=== PATIENT | female | born 1940 | race Caucasian/White ===

== ENCOUNTER 2016-09-08 10:54 | Emergency (ER) | payer MEDICARE ==
[2016-09-08] MEDS ORDERED: Acetaminophen-Codeine 300-30mg TAB PO STA (12:27)
--- NOTE | 2016-09-08 12:30 | ED ---
Extremity Problem HPI - General Chief complaint: Extremity Problem,Nontraumatic Stated complaint: Rt Leg/Groin Pain Time Seen by Provider: 09/08/16 11:45 Source: patient, RN notes reviewed Mode of arrival: wheelchair Limitations: no limitations - History of Present Illness Initial comments: Patient is a 76-year-old female presents emergency room for evaluation of right leg pain. Patient states the pain is been going on for the past few weeks. Patient states the pain has been getting worse over the past 2 days. Patient states the pain starts on the lateral portion of her ankle and radiates up into her leg to the medial portion of her thigh. Patient states that she went to her primary care provider this morning they were told to come here to rule out blood clot. Patient denies history of DVTs or PEs. Patient denies being on any blood thinners. Patient states she only takes blood pressure and cholesterol medication. Patient states she took Advil and a muscle relaxer this morning with little relief of symptoms. Patient denies numbness or tingling in toes. Patient denies calf pain. Patient also states that she's having pain in her right buttocks that does appear to radiate down her leg. Patient is not sure if this pain is sciatic versus a blood clot. Patient denies any back pain. Patient denies urine or fecal incontinence. Patient denies saddle anesthesia - Related Data Home Medications Medication Instructions Recorded Confirmed ALPRAZolam [Xanax] 0.5 mg PO HS PRN 09/08/16 09/08/16 Lisinopril [Prinivil] 10 mg PO DAILY 09/08/16 09/08/16 Pravastatin Sodium [Pravachol] 40 mg PO DAILY 09/08/16 09/08/16 amLODIPine [Norvasc] 5 mg PO DAILY 09/08/16 09/08/16 buPROPion HCL [Wellbutrin XL] 150 mg PO DAILY 09/08/16 09/08/16 Previous Rx's Medication Instructions Recorded Acetaminophen with Codeine 1 tab PO Q4H PRN #15 tab 09/08/16 [Tylenol w/codeine #3] Allergies Allergy/AdvReac Type Severity Reaction Status Date / Time No Known Allergies Allergy Verified 09/08/16 13:53 Review of Systems ROS Statement: Those systems with pertinent positive or pertinent negative responses have been documented in the HPI. ROS Other: All systems not noted in ROS Statement are negative. Past Medical History Past Medical History: Hyperlipidemia, Hypertension Additional Past Medical History / Comment(s): varicose veins History of Any Multi-Drug Resistant Organisms: None Reported Past Surgical History: No Surgical Hx Reported Past Psychological History: Depression Smoking Status: Never smoker Past Alcohol Use History: Occasional Past Drug Use History: None Reported General Exam - General Exam Comments Initial Comments: Sitting in exam room, no acute distress. Limitations: no limitations General appearance: alert, in no apparent distress Head exam: Present: atraumatic, normocephalic, normal inspection Eye exam: Present: normal appearance ENT exam: Present: normal exam Neck exam: Present: normal inspection Respiratory exam: Present: normal lung sounds bilaterally. Absent: respiratory distress Cardiovascular Exam: Present: regular rate, normal rhythm, normal heart sounds Right Hip exam: Present: normal inspection, tenderness (Palpating over right sciatic notch) Knee exam: Present: full knee extension Lower Leg exam: Absent: Homans' sign Foot/Toe exam: Present: tenderness (Lateral portion of the ankle) Neurovascular tendon exam: Present: no vascular compromise. Absent: pulse deficit (2+ dorsal pedal and posterior tibial pulses), abnormal cap refill ( Capillary refill less than 2 seconds) Back exam: Present: normal inspection Neurological exam: Present: alert, oriented X3, CN II-XII intact Psychiatric exam: Present: normal affect, normal mood Skin exam: Present: warm, dry, intact, normal color. Absent: rash Course Vital Signs 09/08/16 09/08/16 11:16 14:00 Temperature 97.5 F L 97.2 F L Pulse Rate 60 93 Respiratory 20 18 Rate Blood Pressure 170/102 143/93 O2 Sat by Pulse 100 94 L Oximetry Medical Decision Making - Medical Decision Making Patient is a 76-year-old female presents emergency room for evaluation of right leg pain. Venous Doppler ultrasound negative for DVT. X-ray of lumbosacral spine negative for any acute findings. It does appear that patient is having more of a sciatic type pain or radicular type pain from low back. Patient was given Tylenol 3 while she was here. Patient states she had significant improvement of symptoms after taking it. Will send patient home with pain medications and advised her to follow up with primary care provider for possible MRI if symptoms do persist. Patient states she understands everything that was discussed with her. Return parameters discussed. Case discussed with Dr. Massey. - Radiology Data Radiology results: report reviewed, image reviewed Disposition Clinical Impression: Radicular pain of right lower extremity Disposition: HOME SELF-CARE Condition: Good Instructions: Lumbar Radiculopathy (ED) Additional Instructions: Warm compresses. Take Tylenol 3 as needed for severe pain. Please follow up with primary care provider in 1-2 days. If any new symptom arises or symptoms worsen, return to ER as soon as possible. Prescriptions: Acetaminophen with Codeine [Tylenol w/codeine #3] 1 tab PO Q4H PRN #15 tab PRN Reason: Pain Referrals: Chance Ugalde MD [Primary Care Provider] - 1-2 days Time of Disposition: 14:37
--- NOTE | 2016-09-08 13:49 | US ---
EXAMINATION TYPE: US venous doppler duplex LE RT DATE OF EXAM: 09/08/2016 1:30 PM COMPARISON: NONE CLINICAL HISTORY: Pain. Right leg pain. No hx of DVT or on blood thinners. No hx of surgeries. SIDE PERFORMED: Right TECHNIQUE: The lower extremity deep venous system is examined utilizing real time linear array sonog danette with graded compression, doppler sonography and color-flow sonography. VESSELS IMAGED: External Iliac Vein (EIV) Common Femoral Vein Deep Femoral Vein Greater Saphenous Vein * Femoral Vein Popliteal Vein Small Saphenous Vein * Proximal Calf Veins (* superficial vessels) Grayscale, color doppler, spectral doppler imaging performed of the deep veins of the lower extremiti es. There is normal flow, compressibility, vascular waveforms bilaterally. Right Leg: Appears negative for DVT IMPRESSION: No evidence for DVT at this time.
[2016-09-08 14:23] VITALS: BP 143/93; PULSE 93; RESP 18; TEMP 97.2
--- NOTE | 2016-09-08 14:31 | XR ---
EXAMINATION TYPE: XR lumbosacral spine min 4V DATE OF EXAM: 09/08/2016 2:24 PM COMPARISON: NONE HISTORY: Pain TECHNIQUE: 5 views FINDINGS: Vertebra have fairly normal alignment. There is a slight dextro scoliosis. Posterior elements are int act. Sacroiliac joints are normal. Abdominal aorta is atheromatous. There is no compression fracture. IMPRESSION: Minor degenerative spur formation. No fracture.
== END 2016-09-08 14:45 | disposition home or self-care (01) ==
LOC: EC 10:54
DX: M54.10 Radiculopathy, site unspecified (principal); E78.5 Hyperlipidemia, unspecified; I10 Essential (primary) hypertension; F32.9 Major depressive disorder, single episode, unspecified; Z79.899 Other long term (current) drug therapy
CPT/HCPCS: 72110; 99284

== ENCOUNTER → 2018-08-18 | Outpatient (CLI) | payer MEDICARE ==
--- NOTE | 2018-08-19 11:27 | ECHOF ---
Referral Reason:R01.1 cardiac murmur MEASUREMENTS -------- HEIGHT: 162.6 cm WEIGHT: 70.3 kg BP: 161/72 RVIDd: 2.7 cm (< 3.3) IVSd: 1.2 cm (0.6 - 1.1) LVIDd: 3.8 cm (3.9 - 5.3) LVPWd: 1.4 cm (0.6 - 1.1) IVSs: 1.8 cm LVIDs: 2.5 cm LVPWs: 1.6 cm LA Diam: 3.0 cm (2.7 - 3.8) LAESV Index (A-L): 20.94 ml/m Ao Diam: 2.6 cm (2.0 - 3.7) AV Cusp: 1.1 cm (1.5 - 2.6) EPSS: 0.5 cm MV E Tyrell: 0.71 m/s MV DecT: 354 ms MV A Tyrell: 1.14 m/s MV E/A Ratio: 0.62 AV maxP.35 mmHg AV meanP.73 mmHg RAP: 5.00 mmHg RVSP: 19.68 mmHg MV EF SLOPE: 46.43 mm/s (70 - 150) MV EXCURSION: 1.51 cm (> 18.000) FINDINGS -------- Sinus rhythm. This was a technically adequate study. The left ventricular size is normal. There is moderate concentric left ventricular hypertrophy. O verall left ventricular systolic function is normal with, an EF between 55 - 60 %. The right ventricle is normal in size. Normal LA size by volume 22+/-6 ml/m2. The right atrium is normal in size. There is moderate aortic valve sclerosis. Trace to mild aortic regurgitation. There is moderate a ortic stenosis present. Peak/mean gradient across the Aortic Valve is 37.35mmHg / 20.73mmHg. The mitral valve leaflets are mildly thickened. Mild mitral annular calcification present. Mild tricuspid regurgitation present. Right ventricular systolic pressure is normal at < 35 mmHg. Trace/mild (physiologic) pulmonic regurgitation. The aortic root size is normal. Normal inferior vena cava with normal inspiratory collapse consistent with estimated right atrial pre ssure of 5 mmHg. There is no pericardial effusion. CONCLUSIONS -------- 1. Sinus rhythm. 2. This was a technically adequate study. 3. The left ventricular size is normal. 4. There is moderate concentric left ventricular hypertrophy. 5. Overall left ventricular systolic function is normal with, an EF between 55 - 60 %. 6. The right ventricle is normal in size. 7. Normal LA size by volume 22+/-6 ml/m2. 8. The right atrium is normal in size. 9. There is moderate aortic valve sclerosis. 10. Trace to mild aortic regurgitation. 11. There is moderate aortic stenosis present. 12. Peak/mean gradient across the Aortic Valve is 37.35mmHg / 20.73mmHg. 13. The mitral valve leaflets are mildly thickened. 14. Mild mitral annular calcification present. 15. Mild tricuspid regurgitation present. 16. Right ventricular systolic pressure is normal at < 35 mmHg. 17. Trace/mild (physiologic) pulmonic regurgitation. 18. The aortic root size is normal. 19. Normal inferior vena cava with normal inspiratory collapse consistent with estimated right atrial pressure of 5 mmHg. 20. There is no pericardial effusion. FINGERER: NEERU Ahuja
== END | disposition home or self-care (01) ==
LOC: RADECHMAIN 14:41
PROVIDERS: ATTEND Internal Medicine
DX: I08.3 Combined rheumatic disorders of mitral, aortic and tricuspid valves (principal)
CPT/HCPCS: 93306

== ENCOUNTER → 2019-04-27 | Outpatient (CLI) | payer MEDICARE ==
--- NOTE | 2019-04-27 12:00 | ECHOS ---
STRESS ECHOCARDIOGRAM DATE OF SERVICE: 04/27/2019 INDICATIONS: Dyspnea. MEDICATIONS: Simvastatin, lisinopril. BASELINE HEART RATE: 63 BASELINE BLOOD PRESSURE: 152/66 MAXIMUM HEART RATE: 133 MAXIMUM BLOOD PRESSURE: 174/93 85% MPHR: 120 100% MPHR: 141 METS: 5.2 MAXIMUM STAGE REACHED: II TOTAL EXERCISE TIME: 3 minutes 40 seconds CLINICAL INFORMATION: Patient was exercised for a total period of 3 minutes and 40 seconds. A peak heart rate of 133 was achieved. Maximum blood pressure of 174/93 mmHg was noted. Test was terminated because patient got short of breath. Resting EKG shows normal sinus rhythm with normal SC interval and QRS duration and minimal ST changes. During exercise, [address]-segment depression is noted in the inferior lateral leads. The baseline echocardiographic images reveals normal left ventricular chamber size with normal left ventricular systolic function. In the immediate postexercise period, normal increase in the wall thickness and contractility is noted. FINAL IMPRESSION: 1. This stress echocardiographic study is negative for stress-induced ischemia. 2. EKG shows ST-segment depression which could be suggestive of ischemia versus changes secondary to hypertension. Patient's only symptoms were shortness of breath. 3. The patient's exercise tolerance is below average. MMODL / IJN: [id number] /
== END | disposition home or self-care (01) ==
LOC: RADNMMAIN 09:22
PROVIDERS: ATTEND Physician Assistant
DX: R06.09 Other forms of dyspnea (principal)
CPT/HCPCS: 93351

== ENCOUNTER → 2019-06-16 | Outpatient (CLI) | payer MEDICARE ==
--- NOTE | 2019-06-17 12:12 | MM ---
Reason for exam: screening (asymptomatic). Last mammogram was performed 3 years and 2 months ago. History: Patient is postmenopausal. Family history of breast cancer in daughter. Physical Findings: A clinical breast exam by your physician is recommended on an annual basis and results should be correlated with mammographic findings. MG 3D Screening Mammo W/Cad Bilateral CC and MLO view(s) were taken. Prior study comparison: April 04, 2016, bilateral MG screening mammo w CAD. September 17, 2005, bilateral screening mammogram w/CAD. The breast tissue is heterogeneously dense. This may lower the sensitivity of mammography. Benign appearing bilateral vascular calcifications. No suspicious abnormality. Stable right medial anterior depth asymmetry. No significant changes when compared with prior studies. ASSESSMENT: Benign, BI-RAD 2 RECOMMENDATION: Routine screening mammogram of both breasts in 1 year.
== END | disposition home or self-care (01) ==
LOC: RADMAMWWP 10:45
PROVIDERS: ATTEND Internal Medicine
DX: Z12.31 Encounter for screening mammogram for malignant neoplasm of breast (principal)
CPT/HCPCS: 77063; 77067

== ENCOUNTER → 2022-04-18 | Outpatient (CLI) | payer MEDICARE ==
--- NOTE | 2022-04-18 13:49 | US ---
EXAMINATION TYPE: US kidneys/renal and bladder DATE OF EXAM: 04/18/2022 COMPARISON: NONE CLINICAL HISTORY: N39.0 URINARY TRACT INFECTION, SITE NOT SPECIFIED. UTI EXAM MEASUREMENTS: Right Kidney: 9.8 x 3.9 x 4.5 cm Left Kidney: 10.9 x 5.1 x 4.4 cm Right Kidney: Appeared wnl Left Kidney: Appeared wnl Bladder: anterior bladder wall appears as though there is a focal outpouching possibly relating to bl adder diverticulum versus incomplete distention and wall folding. Bilateral Jets seen: Yes There is no evidence for hydronephrosis at this point in time. No nephrolithiasis is seen. No joe s are identified. The urinary bladder is anechoic. Bilateral ureteral jets are seen. IMPRESSION: 1. No evidence of obstructive uropathy. No acute process. 2. Bladder diverticulum versus incomplete distention and bladder wall folding noted. This could be c onfirmed with CT urogram.
== END | disposition home or self-care (01) ==
LOC: RADUSWWP 12:01
PROVIDERS: ATTEND Urology
DX: N39.0 Urinary tract infection, site not specified (principal)
CPT/HCPCS: 76770

== ENCOUNTER 2023-05-01 11:54 | Inpatient (IN) | payer MEDICARE ==
[2023-05-01] MEDS ORDERED: FUROSEMIDE 10 MG/ML 4 ML VIAL ONE (13:32)
[2023-05-01] MEDS ORDERED: IPRATROPIUM-ALBUTEROL 3 ML NEB INHALATION PRN (13:41)
[2023-05-01] MEDS ORDERED: FUROSEMIDE 10 MG/ML 4 ML VIAL IV STA (13:42)
[2023-05-01] MEDS ORDERED: NITROGLYCERIN SL TABS 0.4 MG TAB SUBLINGUAL PRN (13:42)
[2023-05-01] MEDS ORDERED: NITROGLYCERIN-D5W PMX 50 MG in DEXTROSE/WATER 1 250ML.BAG IV SCH (13:45)
[2023-05-01] MEDS ORDERED: HEPARIN SODIUM 1,000 UN/ML (10ML VL) ONE (14:53)
[2023-05-01] MEDS ORDERED: fentaNYL (PF) 50 MCG/ML 2 ML AMP ONE (14:53)
[2023-05-01] MEDS ORDERED: IV FLUID CONTINUATION 1,000 ML IV ONE (15:02)
[2023-05-01] MEDS ORDERED: LIDOCAINE 1% INJ 10MG/ML (20 ML MDV) SQ ONE (15:09)
[2023-05-01] MEDS ORDERED: MIDAZOLAM 2 MG/2 ML VIAL IVP ONE ×2 (15:10→15:11)
[2023-05-01] MEDS ORDERED: VERAPAMIL SYRINGE (5 MG/10 ML) INTRAARTER ONE (15:10)
[2023-05-01] MEDS: HEPARIN SODIUM 1,000 UN/ML (10ML VL) IVP ONE ×2 (15:12→15:22)
[2023-05-01] MEDS ORDERED: HEPARIN SODIUM 1,000 UN/ML (10ML VL) IVP ONE (15:12)
[2023-05-01] MEDS ORDERED: NITROGLYCERIN 1000MCG/10ML SYRINGE INTRACORON ONE (15:22)
[2023-05-01] MEDS ORDERED: IOPAMIDOL-370 100ML BTL INJ ONE ×2 (15:23→15:41)
[2023-05-01] MEDS ORDERED: PHENYLEPHRINE-0.9% NACL SYG 1,000 MCG/10 ML SYRINGE IVP ONE (15:31)
--- NOTE | 2023-05-01 15:48 | P.PRCINT ---
Percutaneous Coronary Int. - Percutaneous Coronary Intervention Percutaneous Coronary Intervention: PROCEDURES PERFORMED: Left coronary angiography, PCI circumflex with a 2.5 x 15mm Xience DAVID, post dilated with a 3.0 NC balloon INDICATION: Non-STEMI CONSENT:I have discussed the risks, benefits and alternative therapies for the above-mentioned procedure and for both sedation/analgesia as well as necessary blood product administration, if indicated, as they pertain to this patient. The patient has indicated understanding and acceptance of the risks and procedures discussed. PROCEDURE: After the risks, benefits and alternatives of the above mentioned procedure explained in detail with the patient, informed consent was obtained. Patient was taken to the catheterization lab and prepped and draped in usual fashion. UA 6-Kyrgyz sheath had been placed in the right radial artery previously. The decision was made to perform PCI of the circumflex. Heparin was given. A 6-Kyrgyz CLS 3.5 guide was used engage the left main. A 0.014 BMW wire was advanced in the distal circumflex. A 2.5 x 8 mm balloon was used to predilate the lesion. Intravascular ultrasound was performed which showed reference vessel distally approximately 2.5 mm more proximally 3.0 mm. A 2.5 x 15 mm Xience DAVID was placed in the mid circumflex. The proximal portion of the stent was postdilated with a 3.0 noncompliant balloon. Repeat intravascular ultrasound was performed which showed well-expanded stent with no dissection. Final angiograms were performed. Pre-intervention there was 95% stenosis with SHAKEEL 3 flow and postintervention there was less than 10% stenosis with SHAKEEL 3 flow. The right radial sheath was removed and a TR band was placed with hemostasis achieved. The patient tolerated the procedure well. Patient was transported back to the post catheterization holding area in stable condition. Conscious Sedation: Patient was monitored under the direct supervision of myself for conscious sedation using Versed and fentanyl for a total duration of 33 minutes HEMODYNAMICS: Aortic: 110/72 SELECTIVE CORONARY ARTERIOGRAPHY: LEFT MAIN: The left main is a large caliber vessel which bifurcates into the LAD and circumflex. There is mild 20-30% diffuse left main stenosis. LEFT ANTERIOR DESCENDING CORONARY ARTERY: LAD is a large caliber vessel which wraps around to the apex. There is a mid LAD 40% stenosis and otherwise mild luminal irregularities. LEFT CIRCUMFLEX CORONARY ARTERY: Left circumflex is a moderate caliber vessel with a mid circumflex 95% stenosis and otherwise mild luminal irregularities. RIGHT CORONARY ARTERY: The right coronary artery was not imaged, see separate report. FINAL IMPRESSION: 1. CAD as described above including mid LAD 40% stenosis and mid circumflex 95% stenosis 2. S/p PCI circumflex with a 2.5 x 15mm Xience DAVID, post dilated with a 3.0 NC balloon PLAN: 1. Aggressive risk factor modification per most recent ACC/AHA guidelines. 2. Continue dual antiplatelets with aspirin and Brillinta for 12 months.
[2023-05-01] MEDS: IPRATROPIUM-ALBUTEROL 3 ML NEB INHALATION SCH ×2 (16:09→20:53)
[2023-05-01] MEDS: METOPROLOL TARTRATE 25 MG TAB PO SCH ×2 (16:25→22:54)
[2023-05-01] MEDS ORDERED: RX INFO: IV CONTRAST WAS GIVEN 1 EACH MISC MISCELLANE PRN (16:27)
[2023-05-01] MEDS ORDERED: ZOLPIDEM 5 MG TAB PO PRN (16:27)
[2023-05-01] MEDS ORDERED: MAG HYDROX/AL HYDROX/SIMETH 30 ML CUP PO PRN (16:27)
[2023-05-01] MEDS ORDERED: ATROPINE SULFATE 0.1 MG/ML 10ML SYRINGE IV PRN (16:27)
[2023-05-01] MEDS ORDERED: SODIUM CHLORIDE 0.9% 1,000 ML in EMPTY BAG 1 BAG IV SCH (16:30)
[2023-05-01] MEDS: TICAGRELOR 90 MG TAB PO SCH (20:33)
[2023-05-01] MEDS: FUROSEMIDE 10 MG/ML 4 ML VIAL IV SCH (20:34)
[2023-05-01] MEDS ORDERED: ATORVASTATIN 40 MG TAB PO SCH (21:00)
[2023-05-02] MEDS ORDERED: MELATONIN 3 MG TABLET PO ONE (00:10)
[2023-05-02 07:44] LABS: Basophils % (A) 0 %; Eosinophils # (A) 0.1 k/uL (0-0.7); Eosinophils % (A) 1 %; HCT 42.4 % (34.0-46.0); HGB 14.1 gm/dL (11.4-16.0); Lymphocytes # (A) 1.4 k/uL (1.0-4.8); Lymphocytes % (A) 14 %; MCH 32.2 pg (25.0-35.0); MCHC 33.1 g/dL (31.0-37.0); MCV 97.1 fL (80.0-100.0); Mean Platelet Volume 7.5; Monocytes # (A) 0.7 k/uL (0-1.0); Monocytes % (A) 7 %; Neutrophils # (A) 7.9 k/uL (1.3-7.7); Neutrophils % (A) 77 %; Platelet Count 294 k/uL (150-450); RBC 4.37 m/uL (3.80-5.40); RDW 12.9 % (11.5-15.5); WBC 10.3 k/uL (3.8-10.6)
[2023-05-02 08:08] LABS: African American GFR (CKD) 79 (>60 ml/min/1.73 sqM); Anion Gap 12 mmol/L; Blood Urea Nitrogen 30 mg/dL (7-17); Calcium 9.4 mg/dL (8.4-10.2); Carbon Dioxide 25 mmol/L (22-30); Chloride 102 mmol/L (98-107); Glucose 134 mg/dL (74-99); Non-African American GFR(CKD) 69 (>60 ml/min/1.73 sqM); Potassium 3.6 mmol/L (3.5-5.1); Sodium 139 mmol/L (137-145)
[2023-05-02] MEDS: IPRATROPIUM-ALBUTEROL 3 ML NEB INHALATION SCH ×2 (08:12→12:06)
[2023-05-02 08:20] VITALS: RESP 16
[2023-05-02] MEDS: METOPROLOL TARTRATE 25 MG TAB PO SCH (08:44)
[2023-05-02] MEDS: TICAGRELOR 90 MG TAB PO SCH (08:44)
[2023-05-02] MEDS: FUROSEMIDE 10 MG/ML 4 ML VIAL IV SCH (08:44)
[2023-05-02] MEDS ORDERED: LOSARTAN 25 MG TAB PO SCH (09:00)
[2023-05-02] MEDS ORDERED: ASPIRIN 81 MG PO SCH (09:00)
[2023-05-02 11:19] VITALS: BMI 16.5
--- NOTE | 2023-05-02 11:46 | P.PN ---
Subjective HISTORY OF PRESENT ILLNESS: This is an 82-year-old female who underwent cardiac catheterization with Dr. Billings with stenting to the circumflex. Patient examined this morning at the bedside. Patient denies any further episodes of chest pain or pressure. She currently denies shortness of breath. Vital signs are stable. Right radial cath site with pulse present. PHYSICAL EXAM: VITAL SIGNS: Reviewed. GENERAL: Well-developed in no acute distress. NECK: Supple. No JVD or thyromegaly LUNGS: Respirations even and unlabored. Lungs essentially clear to auscultation bilaterally. HEART: Regular rate and rhythm. S1 and S2 heard. Systolic murmur noted. EXTREMITIES: Normal range of motion. No clubbing or cyanosis. Peripheral pulses intact. No lower extremity edema ASSESSMENT: Coronary artery disease, s/p PCI of circumflex Hypertension Hyperlipidemia Nicotine dependence with recent cessation PLAN: Continue dual antiplatelet therapy with aspirin and brilinta Continue statin DC IV lasix. Begin oral lasix 20mg daily Patient may be discharged home today from a cardiac standpoint Patient to follow up post discharge in the office. Patient is requesting to follow up with Dr. Billings Nurse practitioner note has been reviewed by physician. Signing provider agrees with the documented findings, assessment, and plan of care documented by SURVEYOR INSTRUMENT ASSISTANT as a scribe. Objective - Vital Signs Vital signs: Vital Signs Temp 98.1 F 05/02/23 07:55 Pulse 68 05/02/23 08:23 Resp 16 05/02/23 08:23 BP 130/55 05/02/23 07:55 Pulse Ox 95 05/02/23 08:12 FiO2 Intake & Output 05/01/23 05/02/23 05/02/23 18:59 06:59 18:59 Intake Total 500.35 118 Output Total 3800 1500 Balance -3299.65 -1500 118 Weight 63.503 kg 43.5 kg 43.5 kg Intake: IV 500 Intake, IV Titration 0.35 Amount Nitroglycerin-D5w Pmx 50 0.35 mg In Dextrose/Water 1 250ml.bag @ 5 MCG/MIN 1.5 mls/hr IV .Q24H JASE Rx#: [id number] Oral 118 Output: Urine 3800 1500 Uretheral (Young) 1200 Other: Voiding Method Toilet - Labs CBC & Chem 7: 05/02/23 07:13 05/02/23 07:13 Labs: Abnormal Lab Results - Last 24 Hours (Table) 05/02/23 05/02/23 Range/Units 07:13 07:13 Neutrophils # 7.9 H (1.3-7.7) k/uL BUN 30 H (7-17) mg/dL Glucose 134 H (74-99) mg/dL
[2023-05-02 12:10] VITALS: BP 92/57; TEMP 98.2
--- NOTE | 2023-05-02 12:46 | XR ---
EXAMINATION TYPE: XR chest 1V portable DATE OF EXAM: 05/02/2023 12:39 PM CLINICAL INDICATION:Female, 82 years old with history of short of breath; PHH COMPARISON: None TECHNIQUE: XR chest 1V portable Frontal view of the chest. FINDINGS: Lungs/Pleura: There is no evidence of pleural effusion, focal consolidation, or pneumothorax. Pulmonary vascularity: Unremarkable. Heart/mediastinum: Cardiomediastinal silhouette is unremarkable. Atherosclerotic calcifications are seen in the aorta. Musculoskeletal: No acute osseous pathology. Other findings: None IMPRESSION: No acute cardiopulmonary disease/process.
--- NOTE | 2023-05-02 13:44 | P.PN ---
Progress Note - Text Progress Note Date: 05/02/23 Patient will require a nebulizer on discharge to manage COPD. Patient to continue on DuoNeb treatments 3 times daily
[2023-05-02 14:18] VITALS: PULSE 85
--- NOTE | 2023-05-02 15:02 | P.HPIM ---
History of Present Illness H&P Date: 05/02/23 This is a pleasant 82-year-old female who was recently sent over from [facility] from cardiology and underwent cardiac catheterization with stenting to the circumflex. Patient follows with Dr. Qureshi in the outpatient setting with a past medical history of being a former smoker, hyperlipidemia, hypertension, varicose veins with depression. Patient was experiencing some hypertension along with chest heaviness and shortness of breath maintained on oxygen and was receiving treatments. Chest x-ray today shows no acute cardiopulmonary disease/process. Patient reports to feeling improved on breathing treatments and has been weaned off oxygen and evaluated for possible home O2 although maintained oxygen saturations above 95%. Initial labs drawn showing a WBC of 10.3, hemoglobin 14.1, platelets are 294, sodium 139, potassium 3.6, BUN 30 with a creatinine of 0.8 and random glucose was 134. EKG showed sinus rhythm with frequent premature complexes. REVIEW OF SYSTEMS: CONSTITUTIONAL: No fever, no malaise, no fatigue. HEENT: No recent visual problems or hearing problems. Denied any sore throat. CARDIOVASCULAR: No chest pain, orthopnea, PND, no palpitations, no syncope. PULMONARY: No shortness of breath, reports cough, no hemoptysis. GASTROINTESTINAL: No diarrhea, no nausea, no vomiting, no abdominal pain. NEUROLOGICAL: No headaches, no weakness, no numbness. HEMATOLOGICAL: Denies any bleeding or petechiae. GENITOURINARY: Denies any burning micturition, frequency, or urgency. MUSCULOSKELETAL/RHEUMATOLOGICAL: Denies any joint pain, swelling, or any muscle pain. ENDOCRINE: Denies any polyuria or polydipsia. The rest of the 14-point review of systems is negative. PHYSICAL EXAMINATION: GENERAL: The patient is alert and oriented x3, not in any acute distress. Well developed, thin built, elderly appearing HEENT: Pupils are round and equally reacting to light. EOMI. No scleral icterus. No conjunctival pallor. Normocephalic, atraumatic. No pharyngeal erythema. No thyromegaly. CARDIOVASCULAR: S1 and S2 muffled PULMONARY: Diminished breath sounds bilaterally otherwise chest is clear to auscultation, no wheezing or crackles. ABDOMEN: Soft, nontender, nondistended, normoactive bowel sounds. No palpable organomegaly. MUSCULOSKELETAL: No joint swelling or deformity. EXTREMITIES: No cyanosis, clubbing, or pedal edema. NEUROLOGICAL: Gross neurological examination did not reveal any focal deficits. SKIN: No rashes. Assessment: Chest pain, ruled out ACS, status postcardiac catheterization with PCI stenting of the circumflex History of hypertension History of hyperlipidemia Former smoker and reports to quitting recently COPD without any exacerbation GI prophylaxis DVT prophylaxis Full code Plan: Patient was seen and evaluated by cardiology this morning maintained on telemetry monitoring and reports to feeling much improved status post PCI stenting to the circumflex Patient was reporting some shortness of breath and difficulty in breathing and was continued on 2 L of oxygen although saturating at 100%. Home O2 evaluated and patient does not qualify for oxygen. Patient reports to feeling significantly improved with breathing treatments and will arrange for nebulizer in the outpatient setting and continued on breathing treatments as needed to manage COPD. Patient was a former smoker and recently quit. Follow-up chest x-ray shows no acute pulmonary process Patient has been cleared by cardiology for discharge today. Patient has been instructed to follow-up with primary care provider along with cardiology this week. Daughter at the bedside with questions and concerns that were answered to the best of our ability. The impression and plan of care has been dictated by Mariaa Landeros, Nurse Practitioner as directed. Dr. Eyal MD I have performed a history and examination and MDM of this patient, discussed the same with the dictator, and agree with the dictator's assessment and plan as written ,documented as a scribe. Based on total visit time, I have performed more than 50% of the visit. Past Medical History Past Medical History: Hyperlipidemia, Hypertension Additional Past Medical History / Comment(s): varicose veins History of Any Multi-Drug Resistant Organisms: None Reported Past Surgical History: No Surgical Hx Reported Past Psychological History: Depression Smoking Status: Former smoker Past Alcohol Use History: Occasional Past Drug Use History: None Reported Medications and Allergies Home Medications Medication Instructions Recorded Confirmed Type Magnesium 250 mg PO DAILY 05/01/23 05/01/23 History [place]-3/Dha/Epa/Fish Oil [Fish Oil 1 cap PO DAILY 05/01/23 05/01/23 History 1,000 mg Softgel] Turmeric Root Extract [Turmeric] 500 mg PO DAILY 05/01/23 05/01/23 History Vitamin B Complex 1 cap PO DAILY 05/01/23 05/01/23 History Vitamin D3/Vitamin K2 (Mk4) 1 tab PO DAILY 05/01/23 05/01/23 History [Vitamin K2 Plus D3 Tablet] Aspirin 81 mg PO DAILY #90 tab 05/02/23 Rx Atorvastatin [Lipitor] 40 mg PO HS #90 tab 05/02/23 Rx Furosemide [Lasix] 20 mg PO DAILY #90 tab 05/02/23 Rx Ipratropium-Albuterol Nebulize 3 ml INHALATION RT-QID PRN each 05/02/23 Rx [Duoneb 0.5 mg-3 mg/3 ml Soln] Ipratropium-Albuterol Nebulize 3 ml INHALATION TID #60 each 05/02/23 Rx [Duoneb 0.5 mg-3 mg/3 ml Soln] Losartan [Cozaar] 12.5 mg PO DAILY #90 tab 05/02/23 Rx Metoprolol Tartrate [Lopressor] 25 mg PO BID #180 tab 05/02/23 Rx Nitroglycerin Sl Tabs [Nitrostat] 0.4 mg SUBLINGUAL Q5M PRN #100 tab 05/02/23 Rx Ticagrelor [Brilinta] 90 mg PO BID #180 tab 05/02/23 Rx Allergies Allergy/AdvReac Type Severity Reaction Status Date / Time No Known Allergies Allergy Verified 05/01/23 17:01 Physical Exam Vitals: Vital Signs Temp Pulse Pulse Resp BP Pulse Ox 05/02/23 08:23 68 16 05/02/23 08:12 72 16 95 05/02/23 07:55 98.1 F 72 16 130/55 100 05/02/23 04:04 69 18 122/55 97 05/02/23 00:00 89 18 121/76 96 05/01/23 21:02 86 05/01/23 20:53 84 05/01/23 19:46 97.6 F 85 18 111/70 98 05/01/23 16:24 88 18 153/67 96 05/01/23 14:01 99 05/01/23 13:45 109 H Intake and Output 05/01/23 05/02/23 05/02/23 22:59 06:59 14:59 Intake Total 500 118 Output Total 3750 300 Balance -3250 -300 118 Intake: IV 500 Oral 118 Output: Urine 3750 300 Uretheral (Young) 1200 Other: Voiding Method Indwelling Catheter Toilet Weight 43.5 kg 43.5 kg Results CBC & Chem 7: 05/02/23 07:13 05/02/23 07:13 Labs: Abnormal Lab Results - Last 24 Hours (Table) 05/02/23 05/02/23 Range/Units 07:13 07:13 Neutrophils # 7.9 H (1.3-7.7) k/uL BUN 30 H (7-17) mg/dL Glucose 134 H (74-99) mg/dL
[2023-05-03] MEDS ORDERED: FUROSEMIDE 20 MG TAB PO SCH (09:00)
--- NOTE | 2023-05-03 10:45 | P.DS ---
Providers Date of admission: 05/01/23 13:29 Expected date of discharge: 05/02/23 Attending physician: Leroy Birch Consults: 05/01/23 16:27 Consult Physician Routine Consulting Provider: [facility] Consult Reason/Comments: Post Interventional Patient Do you want consulting provider notified?: Already Contacted Primary care physician: Odin Qureshi [place] [facility] Course: Final diagnosis Chest pain, ruled out ACS, status postcardiac catheterization with PCI stenting of the circumflex History of hypertension History of hyperlipidemia Former smoker and reports to quitting recently COPD without any exacerbation GI prophylaxis DVT prophylaxis Full code Discharge disposition Patient is being discharged in a stable condition with guarded prognosis to home. Patient will follow-up with Dr. Qureshi in the outpatient setting upon discharge. Patient is to continue with current medications as prescribed and close outpatient follow-up with cardiology as scheduled. Total time taken is greater than 35 minutes. Hospital course This is a 82-year-old female who was recently admitted at [facility] with chest pain had cardiac catheterization and was sent here for PCI stenting to the circumflex. Patient was monitored overnight with cardiology following and maintained on aspirin and Brilinta and statin therapy and was cleared for discharge home. Patient reporting some shortness of breath and chest x-ray was done which showed no acute process and home O2 eval was performed and patient did not qualify for home oxygen as she maintain oxygen saturations above 92% on room air. Patient reports to feeling improved with breathing inhalational treatments and was given a nebulizer to go home with and instructed to follow-up with primary care provider as well as pulmonary outpatient. Patient recently was continued on nicotine dependence and recently quit. Patient reports to feeling well and would like to go home. Please refer to cardiology notes for further HPI. Currently no reports of chest pain, shortness of breath, or palpitations. Patient is afebrile. No reports of nausea or vomiting and patient is tolerating diet. Patient will be discharged home today. Guarded prognosis Physical exam: Gen: This is a 82-year-old female who is awake, alert and oriented x 3, well- developed, thin built HEENT: Head is atraumatic, normocephalic. Pupils equal, round. Sclerae is anicteric. NECK: Supple. No JVD. No lymphadenopathy. No thyromegaly. LUNGS: Diminished breath sounds bilaterally otherwise clear to auscultation. No wheezes or rhonchi. No intercostal retractions. HEART: Regular rate and rhythm. No murmur. ABDOMEN: Soft. Bowel sounds are present. No masses. No tenderness. EXTREMITIES: No pedal edema. No calf tenderness. NEUROLOGICAL: Patient is awake, alert and oriented x3. Cranial nerves 2 through 12 are grossly intact. Please refer to medication reconciliation sheet for a list of medications. The impression and plan of care has been dictated by Mariaa Landeros, Nurse Practitioner as directed. Dr. Eyal MD I have performed a history and examination and MDM of this patient, discussed the same with the dictator, and agree with the dictator's assessment and plan as written ,documented as a scribe. Based on total visit time, I have performed more than 50% of the visit. Patient Condition at Discharge: Stable Plan - Discharge Summary New Discharge Prescriptions: New Furosemide [Lasix] 20 mg PO DAILY #90 tab Metoprolol Tartrate [Lopressor] 25 mg PO BID #180 tab Ipratropium-Albuterol Nebulize [Duoneb 0.5 mg-3 mg/3 ml Soln] 3 ml INHALATION RT-QID PRN each PRN Reason: Shortness Of Breath Or Wheezing Aspirin 81 mg PO DAILY #90 tab Ticagrelor [Brilinta] 90 mg PO BID #180 tab Losartan [Cozaar] 12.5 mg PO DAILY #90 tab Atorvastatin [Lipitor] 40 mg PO HS #90 tab Nitroglycerin Sl Tabs [Nitrostat] 0.4 mg SUBLINGUAL Q5M PRN #100 tab PRN Reason: Chest Pain Continue Turmeric Root Extract [Turmeric] 500 mg PO DAILY Vitamin D3/Vitamin K2 (Mk4) [Vitamin K2 Plus D3 Tablet] 1 tab PO DAILY Vitamin B Complex 1 cap PO DAILY Magnesium 250 mg PO DAILY [place]-3/Dha/Epa/Fish Oil [Fish Oil 1,000 mg Softgel] 1 cap PO DAILY Discontinued Ascorbic Acid [Vitamin C] 1,000 mg PO DAILY lisinopriL [Zestril] 20 mg PO DAILY Ezetimibe/Simvastatin [Ezetimibe/Simvastatin 10-40 mg] 1 tab PO DAILY No Action Ipratropium-Albuterol Nebulize [Duoneb 0.5 mg-3 mg/3 ml Soln] 3 ml INHALATION RT-TID Discharge Medication List Magnesium 250 mg PO DAILY 01/24/24 [History] [place]-3/Dha/Epa/Fish Oil [Fish Oil 1,000 mg Softgel] 1 cap PO DAILY 05/01/23 [History] Turmeric Root Extract [Turmeric] 500 mg PO DAILY 05/01/23 [History] Vitamin B Complex 1 cap PO DAILY 05/01/23 [History] Vitamin D3/Vitamin K2 (Mk4) [Vitamin K2 Plus D3 Tablet] 1 tab PO DAILY 05/01/23 [History] Aspirin 81 mg PO DAILY #90 tab 05/02/23 [Rx] Atorvastatin [Lipitor] 40 mg PO HS #90 tab 05/02/23 [Rx] Furosemide [Lasix] 20 mg PO DAILY #90 tab 05/02/23 [Rx] Ipratropium-Albuterol Nebulize [Duoneb 0.5 mg-3 mg/3 ml Soln] 3 ml INHALATION RT-QID PRN each 05/02/23 [Rx] Ipratropium-Albuterol Nebulize [Duoneb 0.5 mg-3 mg/3 ml Soln] 3 ml INHALATION RT -TID 05/02/23 [History] Losartan [Cozaar] 12.5 mg PO DAILY #90 tab 05/02/23 [Rx] Metoprolol Tartrate [Lopressor] 25 mg PO BID #180 tab 05/02/23 [Rx] Nitroglycerin Sl Tabs [Nitrostat] 0.4 mg SUBLINGUAL Q5M PRN #100 tab 05/02/23 [Rx] Ticagrelor [Brilinta] 90 mg PO BID #180 tab 05/02/23 [Rx] Follow up Appointment(s)/Referral(s): Octavio Billings DO [STAFF PHYSICIAN] - 05/09/23 8:00 am [facility] Visiting Nurse, [NON-STAFF] - Patient Instructions/Handouts: Heart Attack (DC) Activity/Diet/Wound Care/Special Instructions: Activity limited until follow-up Follow-up with primary care provider on discharge Follow-up with cardiology outpatient Continue taking medications as prescribed Discharge Disposition: HOME WITH HOME HEALTH SERVICES
== END 2023-05-02 15:03 | disposition home health service (06) | DRG 322 ==
LOC: 3SCARD 13:29
PROVIDERS: ADMIT Internal Medicine; ATTEND Internal Medicine
PROC: 027034Z Dilation of Coronary Artery, One Artery with Drug-eluting Intraluminal Device, Percutaneous Approach (ICD-10-PCS; principal; 2023-05-01 16:40)
PROC: B240ZZ3 Ultrasonography of Single Coronary Artery, Intravascular (ICD-10-PCS; 2023-05-01 16:40)
DX: I25.119 Atherosclerotic heart disease of native coronary artery with unspecified angina pectoris (principal); J44.9 Chronic obstructive pulmonary disease, unspecified; F32.A Depression, unspecified; I10 Essential (primary) hypertension; E78.5 Hyperlipidemia, unspecified; I83.90 Asymptomatic varicose veins of unspecified lower extremity; I49.3 Ventricular premature depolarization; Z87.891 Personal history of nicotine dependence; Z79.82 Long term (current) use of aspirin; Z79.899 Other long term (current) drug therapy; Z79.02 Long term (current) use of antithrombotics/antiplatelets
CPT/HCPCS: 71045; 80048; 85025; 92978; 94640; 94760

== ENCOUNTER 2023-05-02 16:42 | Inpatient (IN) | payer MEDICARE ==
--- NOTE | 2023-05-02 16:57 | ED ---
Syncope HPI - General Stated Complaint: Syncope Time Seen by Provider: 05/02/23 16:50 Source: RN notes reviewed, old records reviewed Mode of arrival: EMS Limitations: no limitations - History of Present Illness Initial Comments: This is an 82 female to the ED with an unresponsive episode prior to arrival, patient recently had stent placement and she was discharged form the ED today. Patient here in ED has no complaints of CP or SOb and wants to be dishcarged home, patient does not want further hospitalization if she has been spending some recent time in the hospital. The patient was brought in for syncopal event here in the ER or unresponsive event prior to arrival MD Complaint: loss of consciousness, almost passed out -: hour(s) Prodromal Symptoms: lightheaded, palpitations, heart racing -: second(s) Witnessed: yes - by bystander Current Symptoms: lightheaded Context: illicit drug use Treatments Prior to Arrival: none - Related Data Home Medications Medication Instructions Recorded Confirmed Magnesium 250 mg PO DAILY 05/01/23 05/02/23 [place]-3/Dha/Epa/Fish Oil [Fish Oil 1 cap PO DAILY 05/01/23 05/02/23 1,000 mg Softgel] Turmeric Root Extract [Turmeric] 500 mg PO DAILY 05/01/23 05/02/23 Vitamin B Complex 1 cap PO DAILY 05/01/23 05/02/23 Vitamin D3/Vitamin K2 (Mk4) 1 tab PO DAILY 05/01/23 05/02/23 [Vitamin K2 Plus D3 Tablet] Ipratropium-Albuterol Nebulize 3 ml INHALATION RT-TID 05/02/23 05/02/23 [Duoneb 0.5 mg-3 mg/3 ml Soln] Previous Rx's Medication Instructions Recorded Aspirin 81 mg PO DAILY #90 tab 05/02/23 Atorvastatin [Lipitor] 40 mg PO HS #90 tab 05/02/23 Furosemide [Lasix] 20 mg PO DAILY #90 tab 05/02/23 Ipratropium-Albuterol Nebulize 3 ml INHALATION RT-QID PRN each 05/02/23 [Duoneb 0.5 mg-3 mg/3 ml Soln] Nitroglycerin Sl Tabs [Nitrostat] 0.4 mg SUBLINGUAL Q5M PRN #100 tab 05/02/23 Ticagrelor [Brilinta] 90 mg PO BID #180 tab 05/02/23 Acetaminophen Tab [Tylenol] 650 mg PO Q6HR PRN tab 05/06/23 Allergies Allergy/AdvReac Type Severity Reaction Status Date / Time No Known Allergies Allergy Verified 05/02/23 18:13 Review of Systems ROS Statement: Those systems with pertinent positive or pertinent negative responses have been documented in the HPI. ROS Other: All systems not noted in ROS Statement are negative. Past Medical History Past Medical History: Hyperlipidemia, Hypertension Additional Past Medical History / Comment(s): varicose veins History of Any Multi-Drug Resistant Organisms: None Reported Past Surgical History: No Surgical Hx Reported Past Psychological History: Depression Smoking Status: Former smoker Past Alcohol Use History: Occasional Past Drug Use History: None Reported - Past Family History Father Family Medical History: No Reported History Mother Family Medical History: No Reported History General Exam General appearance: alert, in no apparent distress, anxious Head exam: Present: atraumatic, normocephalic, normal inspection Eye exam: Present: normal appearance, PERRL, EOMI. Absent: scleral icterus, conjunctival injection, periorbital swelling ENT exam: Present: normal exam, mucous membranes moist Neck exam: Present: normal inspection. Absent: tenderness, meningismus, lymphadenopathy Respiratory exam: Present: normal lung sounds bilaterally. Absent: respiratory distress, wheezes, rales, rhonchi, stridor Cardiovascular Exam: Present: regular rate, normal rhythm, normal heart sounds. Absent: systolic murmur, diastolic murmur, rubs, gallop, clicks GI/Abdominal exam: Present: soft, normal bowel sounds. Absent: distended, tenderness, guarding, rebound, rigid Extremities exam: Present: normal inspection, full ROM, normal capillary refill. Absent: tenderness, pedal edema, joint swelling, calf tenderness Back exam: Present: normal inspection Neurological exam: Present: alert, oriented X3, CN II-XII intact Psychiatric exam: Present: normal affect, normal mood Skin exam: Present: warm, dry, intact, normal color. Absent: rash Course Vital Signs 05/02/23 05/02/23 05/02/23 17:03 17:22 18:16 Temperature 97.9 F 97.6 F Pulse Rate 93 86 92 Pulse Rate [ Debit Agent ] Respiratory 17 18 19 Rate Blood Pressure 115/64 110/80 132/75 Blood Pressure [Right Arm Sitting] Blood Pressure [Right Arm Standing] Blood Pressure [Right Arm Supine] O2 Sat by Pulse 93 L 98 100 Oximetry 05/02/23 05/02/23 05/02/23 20:01 20:55 21:00 Temperature Pulse Rate 88 80 86 Pulse Rate [ Debit Agent ] Respiratory 18 21 16 Rate Blood Pressure 103/69 103/69 103/69 Blood Pressure [Right Arm Sitting] Blood Pressure [Right Arm Standing] Blood Pressure [Right Arm Supine] O2 Sat by Pulse 99 95 100 Oximetry 05/02/23 05/02/23 05/03/23 22:00 23:19 01:12 Temperature Pulse Rate 71 75 76 Pulse Rate [ Debit Agent ] Respiratory 20 22 14 Rate Blood Pressure 110/91 104/52 111/76 Blood Pressure [Right Arm Sitting] Blood Pressure [Right Arm Standing] Blood Pressure [Right Arm Supine] O2 Sat by Pulse 100 98 98 Oximetry 05/03/23 05/03/23 05/03/23 02:13 04:00 04:54 Temperature Pulse Rate 74 73 78 Pulse Rate [ Debit Agent ] Respiratory 23 20 18 Rate Blood Pressure 99/64 108/64 99/65 Blood Pressure [Right Arm Sitting] Blood Pressure [Right Arm Standing] Blood Pressure [Right Arm Supine] O2 Sat by Pulse 100 98 98 Oximetry 05/03/23 05/03/23 05/03/23 07:05 08:05 09:13 Temperature 97.6 F Pulse Rate 80 72 Pulse Rate [ 80 Debit Agent ] Respiratory 19 18 18 Rate Blood Pressure 108/65 96/57 Blood Pressure 96/66 [Right Arm Sitting] Blood Pressure 105/92 [Right Arm Standing] Blood Pressure 100/64 [Right Arm Supine] O2 Sat by Pulse 97 96 98 Oximetry 05/03/23 05/03/23 05/03/23 10:35 13:00 14:50 Temperature Pulse Rate 80 89 88 Pulse Rate [ Debit Agent ] Respiratory 18 18 20 Rate Blood Pressure 106/55 118/60 92/57 Blood Pressure [Right Arm Sitting] Blood Pressure [Right Arm Standing] Blood Pressure [Right Arm Supine] O2 Sat by Pulse 96 94 L 99 Oximetry - Reevaluation(s) Reevaluation #1: Medical record is reviewed Reevaluation #2: Patient symptoms unchanged Reevaluation #3: Patient informed of results and questions answered Reevaluation #4: 05/02/23 17:15 Was pt. sent in by a medical professional or institution (, CHANELLE, AUTO BODY TECHNICIAN, urgent care, hospital, or fpc...) When possible be specific @ -no Did you speak to anyone other than the patient for history (EMS, parent, family, police, friend...)? What history was obtained from this source @ -no Did you review nursing and triage notes (agree or disagree)? Why? @ -agree Are old charts reviewed (outside hosp., previous admission, EMS record, old EKG, old radiological studies, urgent care reports/EKG's, fpc records)? R eport findings @ -yes Differential Diagnosis (chest pain, altered mental status, abdominal pain women, abdominal pain men, vaginal bleeding, weakness, fever, dyspnea, syncope, headache, dizziness, GI bleed, back pain, seizure, CVA, palpatations, mental health, musculoskeletal)? @ -prior EKG interpreted by me (3pts min.). @ -yes X-rays interpreted by me (1pt min.). @ -yes negative for acute disease CT interpreted by me (1pt min.). @ -no U/S interpreted by me (1pt. min.). @ -no What testing was considered but not performed or refused? (CT, X-rays, U/S, labs)? Why? @ -none What meds were considered but not given or refused? Why? @ -none Did you discuss the management of the patient with other professionals (professionals i.e. CHANELLE Graves, AUTO BODY TECHNICIAN, lab, RT, psych nurse, social media marketer, nursing project coordinator, teacher, port patrol officer, caser)? Give summary @ -no Was smoking cessation discussed for >3mins.? @ -no Was critical care preformed (if so, how long)? @ -yes31 Were there social determinants of health that impacted care today? How? (Homelessness, low income, unemployed, alcoholism, drug addiction, transportation, low edu. Level, literacy, decrease access to med. care, halfway, rehab)? @ -none Was there de-escalation of care discussed even if they declined (Discuss DNR or withdrawal of care, Hospice)? DNR status @ -no What co-morbidities impacted this encounter? (DM, HTN, Smoking, COPD, CAD, Cancer, CVA, ARF, Chemo, Hep., AIDS, mental health diagnosis, sleep apnea, morbid obesity)? @ -none Was patient admitted / discharged? Hospital course, mention meds given and route, prescriptions, significant lab abnormalities, going to OR and other pertinent info. @ - 82 female to the for evaluation today. Patient be admitted for a syncopal event with unresponsiveness suspect underlying arrhythmia with recent stent placement, elevated troponin. Troponin is elevated without any complaints of chest pain and likely the setting of recent stent placement Admitted Undiagnosed new problem with uncertain prognosis? @ -no Drug Therapy requiring intensive monitoring for toxicity (Heparin, Nitro, Insulin, Cardizem)? @ -no Were any procedures done? @ -no Diagnosis/symptom? @ -ACS, elevated troponin, non-STEMI Acute, or Chronic, or Acute on Chronic? @ -Acute Uncomplicated (without systemic symptoms) or Complicated (systemic symptoms)? @ -Complicated Side effects of treatment? @ -no Exacerbation, Progression, or Severe Exacerbation? @ -exacerbation Poses a threat to life or bodily function? How? (Chest pain, [place], [place], pneumonia, PE, COPD, DKA, ARF, appy, cholecystitis, CVA, Diverticulitis, Homicidal, Suicidal, threat to staff... and all critical care pts) @ -yes in the setting of acute ACS Reevaluation #5: Differential Syncope: Valvular disease, hypertrophic cardiomyopathy, pulmonary embolism, tamponade, tachycardia, bradycardia, [place], hypovolemia, hemorrhage, dissection, anemia, intracranial hemorrhage, seizure, hypoglycemia, carbon monoxide poisoning, this is not meant to be an all-inclusive list. - Consultations Consultation #1: spoke w admitting physician who agree to admit the patient EKG Findings - EKG Comments: EKG Findings:: EKG is sinus 80 AL 149 QRS 110 QTc 392 - EKG Results: EKG: interpreted by ERMD Medical Decision Making - Medical Decision Making 82 female to the for evaluation today. Patient be admitted for a syncopal event with unresponsiveness suspect underlying arrhythmia with recent stent placement, elevated troponin. Troponin is elevated without any complaints of chest pain and likely the setting of recent stent placement - Lab Data Result diagrams: 05/04/23 08:55 05/04/23 08:55 Lab Results 05/02/23 05/02/23 05/02/23 Range/Units 17:09 17:09 17:09 WBC 8.8 (3.8-10.6) k/uL RBC 4.22 (3.80-5.40) m/uL Hgb 13.7 (11.4-16.0) gm/dL Hct 40.3 (34.0-46.0) % MCV 95.5 (80.0-100.0) fL MCH 32.5 (25.0-35.0) pg MCHC 34.0 (31.0-37.0) g/dL RDW 12.9 (11.5-15.5) % Plt Count 282 (150-450) k/uL MPV 7.7 Neutrophils % 76 % Lymphocytes % 13 % Monocytes % 9 % Eosinophils % 1 % Basophils % 0 % Neutrophils # 6.7 (1.3-7.7) k/uL Lymphocytes # 1.1 (1.0-4.8) k/uL Monocytes # 0.8 (0-1.0) k/uL Eosinophils # 0.1 (0-0.7) k/uL Basophils # 0.0 (0-0.2) k/uL PT 10.8 (10.0-12.5) sec INR 1.0 (<1.2) APTT 22.0 (22.0-30.0) sec Sodium 137 (137-145) mmol/L Potassium 3.5 (3.5-5.1) mmol/L Chloride 98 (98-107) mmol/L Carbon Dioxide 30 (22-30) mmol/L Anion Gap 9 mmol/L BUN 37 H (7-17) mg/dL Creatinine 1.14 H (0.52-1.04) mg/dL Est GFR (CKD-EPI)AfAm 52 (>60 ml/min/1.73 sqM) Est GFR (CKD-EPI)NonAf 45 (>60 ml/min/1.73 sqM) Glucose 125 H (74-99) mg/dL Plasma Lactic Acid Michael (0.7-2.0) mmol/L Calcium 9.2 (8.4-10.2) mg/dL Phosphorus 4.0 (2.5-4.5) mg/dL Magnesium 2.1 (1.6-2.3) mg/dL Total Bilirubin 0.8 (0.2-1.3) mg/dL AST 30 (14-36) U/L ALT 79 H (4-34) U/L Alkaline Phosphatase 79 (38-126) U/L Troponin I (0.000-0.034) ng/mL NT-Pro-B Natriuret Pep 21637 pg/mL Total Protein 6.5 (6.3-8.2) g/dL Albumin 4.1 (3.5-5.0) g/dL 05/02/23 05/02/23 Range/Units 17:09 17:09 WBC (3.8-10.6) k/uL RBC (3.80-5.40) m/uL Hgb (11.4-16.0) gm/dL Hct (34.0-46.0) % MCV (80.0-100.0) fL MCH (25.0-35.0) pg MCHC (31.0-37.0) g/dL RDW (11.5-15.5) % Plt Count (150-450) k/uL MPV Neutrophils % % Lymphocytes % % Monocytes % % Eosinophils % % Basophils % % Neutrophils # (1.3-7.7) k/uL Lymphocytes # (1.0-4.8) k/uL Monocytes # (0-1.0) k/uL Eosinophils # (0-0.7) k/uL Basophils # (0-0.2) k/uL PT (10.0-12.5) sec INR (<1.2) APTT (22.0-30.0) sec Sodium (137-145) mmol/L Potassium (3.5-5.1) mmol/L Chloride (98-107) mmol/L Carbon Dioxide (22-30) mmol/L Anion Gap mmol/L BUN (7-17) mg/dL Creatinine (0.52-1.04) mg/dL Est GFR (CKD-EPI)AfAm (>60 ml/min/1.73 sqM) Est GFR (CKD-EPI)NonAf (>60 ml/min/1.73 sqM) Glucose (74-99) mg/dL Plasma Lactic Acid Michael 1.8 (0.7-2.0) mmol/L Calcium (8.4-10.2) mg/dL Phosphorus (2.5-4.5) mg/dL Magnesium (1.6-2.3) mg/dL Total Bilirubin (0.2-1.3) mg/dL AST (14-36) U/L ALT (4-34) U/L Alkaline Phosphatase (38-126) U/L Troponin I 0.249 H* (0.000-0.034) ng/mL NT-Pro-B Natriuret Pep pg/mL Total Protein (6.3-8.2) g/dL Albumin (3.5-5.0) g/dL - EKG Data -: EKG Interpreted by Me Critical Care Time Critical Care Time: Yes Total Critical Care Time: 31 Disposition Clinical Impression: NSTEMI (non-ST elevated myocardial infarction), Syncope, Arrhythmia Disposition: ADMITTED IP TO THIS HOSP Condition: Fair Is patient prescribed a controlled substance at d/c from ED?: No Time of Disposition: 19:00
[2023-05-02] MEDS: SODIUM CHLORIDE 0.9% 1,000 ML IV STA (17:15)
[2023-05-02 17:29] LABS: Basophils % (A) 0 %; Eosinophils # (A) 0.1 k/uL (0-0.7); Eosinophils % (A) 1 %; HCT 40.3 % (34.0-46.0); HGB 13.7 gm/dL (11.4-16.0); Lymphocytes # (A) 1.1 k/uL (1.0-4.8); Lymphocytes % (A) 13 %; MCH 32.5 pg (25.0-35.0); MCV 95.5 fL (80.0-100.0); Mean Platelet Volume 7.7; Monocytes # (A) 0.8 k/uL (0-1.0); Monocytes % (A) 9 %; Neutrophils # (A) 6.7 k/uL (1.3-7.7); Neutrophils % (A) 76 %; Platelet Count 282 k/uL (150-450); RBC 4.22 m/uL (3.80-5.40); RDW 12.9 % (11.5-15.5); WBC 8.8 k/uL (3.8-10.6)
[2023-05-02 17:39] LABS: ALT 79 U/L (4-34); AST 30 U/L (14-36); African American GFR (CKD) 52 (>60 ml/min/1.73 sqM); Albumin 4.1 g/dL (3.5-5.0); Alkaline Phosphatase 79 U/L (38-126); Anion Gap 9 mmol/L; Blood Urea Nitrogen 37 mg/dL (7-17); Calcium 9.2 mg/dL (8.4-10.2); Carbon Dioxide 30 mmol/L (22-30); Chloride 98 mmol/L (98-107); Glucose 125 mg/dL (74-99); Magnesium 2.1 mg/dL (1.6-2.3); Non-African American GFR(CKD) 45 (>60 ml/min/1.73 sqM); Potassium 3.5 mmol/L (3.5-5.1); Sodium 137 mmol/L (137-145); Total Bilirubin 0.8 mg/dL (0.2-1.3); Total Protein 6.5 g/dL (6.3-8.2)
[2023-05-02 17:46] LABS: NT-Pro-B-Type Natriuretic Pept 26300 pg/mL
[2023-05-02 17:56] LABS: Prothrombin Time 10.8 sec (10.0-12.5)
[2023-05-02] MEDS ORDERED: MORPHINE SULFATE 4 MG/ML SYRINGE IV PRN (18:53)
[2023-05-02] MEDS ORDERED: NALOXONE 0.4 MG/ML 1 ML VIAL IV PRN (18:53)
[2023-05-02] MEDS ORDERED: ONDANSETRON 4 MG/2 ML VIAL IVP PRN (18:53)
[2023-05-02] MEDS: SODIUM CHLORIDE 0.9% 1,000 ML IV SCH (18:57)
[2023-05-02] MEDS: FUROSEMIDE 10 MG/ML 4 ML VIAL IV SCH (23:11)
[2023-05-02] MEDS: TICAGRELOR 90 MG TAB PO SCH (23:12)
[2023-05-03 07:40] LABS: Basophils % (A) 0 %; Eosinophils # (A) 0.2 k/uL (0-0.7); Eosinophils % (A) 2 %; HCT 38.8 % (34.0-46.0); HGB 12.9 gm/dL (11.4-16.0); Lymphocytes # (A) 1.2 k/uL (1.0-4.8); Lymphocytes % (A) 13 %; MCH 32.6 pg (25.0-35.0); MCHC 33.3 g/dL (31.0-37.0); MCV 97.9 fL (80.0-100.0); Mean Platelet Volume 7.4; Monocytes # (A) 0.6 k/uL (0-1.0); Monocytes % (A) 6 %; Neutrophils # (A) 7.2 k/uL (1.3-7.7); Neutrophils % (A) 77 %; Platelet Count 247 k/uL (150-450); RBC 3.96 m/uL (3.80-5.40); WBC 9.3 k/uL (3.8-10.6)
[2023-05-03 08:03] LABS: ALT 73 U/L (4-34); AST 36 U/L (14-36); African American GFR (CKD) 78 (>60 ml/min/1.73 sqM); Albumin 3.5 g/dL (3.5-5.0); Alkaline Phosphatase 71 U/L (38-126); Anion Gap 7 mmol/L; Blood Urea Nitrogen 31 mg/dL (7-17); Calcium 8.8 mg/dL (8.4-10.2); Carbon Dioxide 29 mmol/L (22-30); Chloride 103 mmol/L (98-107); Glucose 124 mg/dL (74-99); Magnesium 1.9 mg/dL (1.6-2.3); Non-African American GFR(CKD) 68 (>60 ml/min/1.73 sqM); Phosphorus 3.8 mg/dL (2.5-4.5); Potassium 3.2 mmol/L (3.5-5.1); Sodium 139 mmol/L (137-145); Total Bilirubin 0.8 mg/dL (0.2-1.3); Total Protein 5.7 g/dL (6.3-8.2)
[2023-05-03] MEDS: ASPIRIN 81 MG PO SCH (08:51)
--- NOTE | 2023-05-03 09:32 | P.CRDCN ---
History of Present Illness History of present illness: HISTORY OF PRESENT ILLNESS: This is a 82-year-old female with a past medical history significant for coronary artery disease, hypertension, hyperlipidemia, and nicotine dependence. Patient follows in the office with Dr. Billings next [facility] syncope. We have been asked to see the patient in consultation for syncope. Patient examined at the bedside in the emergency room. The patient was discharged home yesterday after undergoing cardiac catheterization with PCI of the circumflex. She was discharged home in stable condition. According to the patient's daughter who was at the bedside, when the patient attempted to get out of the car yesterday after being discharged from the hospital she became weak and her family thought she was going to pass out. The patient did not have a syncopal episode and did not lose consciousness. She denies feeling dizzy or lightheaded. She denies any shortness of breath. She denied any chest pain or pressure. She is stating that she like to be discharged home today. It is noted that the patient's blood pressures have been running on the lower side with a systolic in the 90s. DIAGNOSTICS: - EKG reveals sinus mechanism with T wave inversions in lead I, V5, and V6 - Laboratory data: WBC 9.3. Hemoglobin 12.9. Platelet count 247. Sodium 139. Potassium 3.2. BUN 31. Creatinine 0.81. Magnesium 1.9. Troponin 0.249. 0.10. 0.217. proBNP 26,300 - Current home cardiac medications include aspirin 81 mg daily, Lipitor 40 mg at night, Lasix 20 mg daily, losartan 12.5 mg daily, metoprolol titrate 25 mg twice a day, Brilinta 90 mg twice a day - Most recent echocardiogram obtained in 2019 revealed ejection fraction 55 to 60%, trace to mild AR, moderate aortic stenosis - Cardiac catheterization history: May 01, 2023 with PCI to the circumflex REVIEW OF SYSTEMS: At the time of my exam: CONSTITUTIONAL: Denies fever or chills. HEENT: Denies blurred vision, vision changes, or eye pain. Denies hemoptysis CARDIOVASCULAR: Denies chest pain. Denies orthopnea. Denies PND. Denies palpitations RESPIRATORY: Denies shortness of breath. GASTROINTESTINAL: Denies abdominal pain. Denies nausea or vomiting. HEMATOLOGIC: Denies bleeding disorders. GENITOURINARY: Denies any blood in urine. SKIN: Denies pruitis. Denies rash. PHYSICAL EXAM: VITAL SIGNS: Reviewed. GENERAL: Well-developed in no acute distress. HEENT: Head is normocephalic. Pupils are equal, round. Sclerae anicteric. Mucous membranes of the mouth are moist. Neck supple. No JVD or thyromegaly LUNGS: Respirations even and unlabored. Lungs essentially clear to auscultation bilaterally. HEART: Regular rate and rhythm. S1 and S2 heard. Systolic murmur noted ABDOMEN: Soft. Nondistended. Nontender. EXTREMITIES: Normal range of motion. No clubbing or cyanosis. Peripheral pulses intact. No lower extremity edema NEUROLOGIC: Awake and alert. Oriented x 3. ASSESSMENT: Questionable presyncope Borderline hypotension Coronary artery disease with recent PCI to circumflex, May 01, 2023 Aortic stenosis, at least moderate Hypertension Hyperlipidemia Nicotine dependence with recent cessation PLAN: Obtain records from [facility] of recent echocardiogram performed Continue dual antiplatelet therapy with aspirin and Brilinta Continue statin therapy Hold metoprolol and Cozaar at this time secondary to borderline hypotension Check orthostatic blood pressures Discontinue IV Lasix. Begin oral Lasix 20 mg daily as patient is not fluid overloaded on examination Continue to monitor patient for additional 24 hours If she remains stable, she may be discharged home tomorrow from a cardiac standpoint and follow-up in the office with Dr. Billings Nurse practitioner note has been reviewed by physician. Signing provider agrees with the documented findings, assessment, and plan of care documented by LEAD SIMULATION MODELING ENGINEER as a scribe. Past Medical History Past Medical History: Hyperlipidemia, Hypertension Additional Past Medical History / Comment(s): varicose veins History of Any Multi-Drug Resistant Organisms: None Reported Past Surgical History: Heart Catheterization With Stent Past Psychological History: Depression Smoking Status: Former smoker Past Alcohol Use History: Occasional Past Drug Use History: None Reported Medications and Allergies Home Medications Medication Instructions Recorded Confirmed Type Magnesium 250 mg PO DAILY 05/01/23 05/02/23 History [place]-3/Dha/Epa/Fish Oil [Fish Oil 1 cap PO DAILY 05/01/23 05/02/23 History 1,000 mg Softgel] Turmeric Root Extract [Turmeric] 500 mg PO DAILY 05/01/23 05/02/23 History Vitamin B Complex 1 cap PO DAILY 05/01/23 05/02/23 History Vitamin D3/Vitamin K2 (Mk4) 1 tab PO DAILY 05/01/23 05/02/23 History [Vitamin K2 Plus D3 Tablet] Aspirin 81 mg PO DAILY #90 tab 05/02/23 05/02/23 Rx Atorvastatin [Lipitor] 40 mg PO HS #90 tab 05/02/23 05/02/23 Rx Furosemide [Lasix] 20 mg PO DAILY #90 tab 05/02/23 05/02/23 Rx Ipratropium-Albuterol Nebulize 3 ml INHALATION RT-QID PRN each 05/02/23 05/02/23 Rx [Duoneb 0.5 mg-3 mg/3 ml Soln] Ipratropium-Albuterol Nebulize 3 ml INHALATION RT-TID 05/02/23 05/02/23 History [Duoneb 0.5 mg-3 mg/3 ml Soln] Losartan [Cozaar] 12.5 mg PO DAILY #90 tab 05/02/23 05/02/23 Rx Metoprolol Tartrate [Lopressor] 25 mg PO BID #180 tab 05/02/23 05/02/23 Rx Nitroglycerin Sl Tabs [Nitrostat] 0.4 mg SUBLINGUAL Q5M PRN #100 tab 05/02/23 05/02/23 Rx Ticagrelor [Brilinta] 90 mg PO BID #180 tab 05/02/23 05/02/23 Rx Allergies Allergy/AdvReac Type Severity Reaction Status Date / Time No Known Allergies Allergy Verified 05/02/23 18:13 Physical Exam Vitals: Vital Signs Temp Pulse Resp BP Pulse Ox 05/03/23 08:05 72 18 96/57 96 05/03/23 07:05 80 19 108/65 97 05/03/23 04:54 78 18 99/65 98 05/03/23 04:00 73 20 108/64 98 05/03/23 02:13 74 23 99/64 100 05/03/23 01:12 76 14 111/76 98 05/02/23 23:19 75 22 104/52 98 05/02/23 22:00 71 20 110/91 100 05/02/23 21:00 86 16 103/69 100 05/02/23 20:55 80 21 103/69 95 05/02/23 20:01 88 18 103/69 99 05/02/23 18:16 97.6 F 92 19 132/75 100 05/02/23 17:22 86 18 110/80 98 05/02/23 17:03 97.9 F 93 17 115/64 93 L Intake and Output 05/02/23 05/03/23 05/03/23 22:59 06:59 14:59 Other: Weight 58.967 kg Results 05/03/23 07:21 05/03/23 07:21 Cardiac Enzymes 05/02/23 05/02/23 05/02/23 Range/Units 17:09 17:09 20:16 AST 30 (14-36) U/L Troponin I 0.249 H* 0.210 H* (0.000-0.034) ng/mL 05/02/23 05/03/23 Range/Units 23:58 07:21 AST 36 (14-36) U/L Troponin I 0.217 H* (0.000-0.034) ng/mL Coagulation 05/02/23 Range/Units 17:09 PT 10.8 (10.0-12.5) sec APTT 22.0 (22.0-30.0) sec CBC 05/02/23 05/03/23 Range/Units 17:09 07:21 WBC 8.8 9.3 (3.8-10.6) k/uL RBC 4.22 3.96 (3.80-5.40) m/uL Hgb 13.7 12.9 (11.4-16.0) gm/dL Hct 40.3 38.8 (34.0-46.0) % Plt Count 282 247 (150-450) k/uL Comprehensive Metabolic Panel 05/02/23 05/03/23 Range/Units 17:09 07:21 Sodium 137 139 (137-145) mmol/L Potassium 3.5 3.2 L (3.5-5.1) mmol/L Chloride 98 103 (98-107) mmol/L Carbon Dioxide 30 29 (22-30) mmol/L BUN 37 H 31 H (7-17) mg/dL Creatinine 1.14 H 0.81 (0.52-1.04) mg/dL Glucose 125 H 124 H (74-99) mg/dL Calcium 9.2 8.8 (8.4-10.2) mg/dL AST 30 36 (14-36) U/L ALT 79 H 73 H (4-34) U/L Alkaline Phosphatase 79 71 (38-126) U/L Total Protein 6.5 5.7 L (6.3-8.2) g/dL Albumin 4.1 3.5 (3.5-5.0) g/dL Current Medications Generic Name Dose Route Start Last Admin Trade Name Freq PRN Reason Stop Dose Admin Aspirin 81 mg 05/03/23 09:00 Aspirin 81 Mg PO DAILY JASE Furosemide 40 mg 05/02/23 22:45 05/02/23 23:11 Furosemide 10 Mg/Ml 4 Ml Vial IV 40 mg Q12HR JASE Administration Sodium Chloride 1,000 mls @ 75 mls/hr 05/02/23 19:00 05/02/23 18:57 Saline 0.9% IV 75 mls/hr .[id number] JASE Administration Morphine Sulfate 4 mg 05/02/23 18:53 Morphine Sulfate 4 Mg/Ml Syringe IV Q4HR PRN Severe Pain (Scale 7 to 10) Naloxone HCl 0.2 mg 05/02/23 18:53 Naloxone 0.4 Mg/Ml 1 Ml Vial IV Q2M PRN Opioid Reversal Ondansetron HCl 4 mg 05/02/23 18:53 Ondansetron 4 Mg/2 Ml Vial IVP Q8HR PRN Nausea And Vomiting Ticagrelor 90 mg 05/02/23 22:45 05/02/23 23:12 Ticagrelor 90 Mg Tab PO 90 mg BID JASE Administration Intake and Output 05/02/23 05/03/23 05/03/23 22:59 06:59 14:59 Other: Weight 58.967 kg 05/03/23 07:21 05/03/23 07:21
[2023-05-03] MEDS: FUROSEMIDE 20 MG TAB PO SCH (10:33)
[2023-05-03] MEDS ORDERED: Potassium Replacement Protocol 1 EACH MISC MISCELLANE PRN (15:00)
--- NOTE | 2023-05-03 15:00 | P.HPIM ---
History of Present Illness H&P Date: 05/03/23 This is a 82-year-old female who presented to the emergency department with an episode of possible syncope as patient was getting out of the car as she reports she felt dizzy and lightheaded. Patient was recently hospitalized and underwent PCI stenting 2 days prior and was discharged yesterday when this occurred. Patient with family members at the bedside called EMS and patient was brought back to the hospital. Labs on admission showed a normal white count and CBC with hemoglobin was stable at 13.7, platelets 282, sodium was 137 with a potassium of 3.5 and BUN 37 with a creatinine of 1.14, random glucose was 125. Lactic acid was 1.8 magnesium was 2.1 troponins were elevated at 0.249 and trending down most likely secondary to the recent catheterization. BNP was 26,300 and patient was started on IV Lasix. EKG showed sinus rhythm with a possible right atrial enlargement. patient was admitted for cardiology evaluation and placed on telemetry monitoring. REVIEW OF SYSTEMS: CONSTITUTIONAL: No fever, no malaise, no fatigue. HEENT: No recent visual problems or hearing problems. Denied any sore throat. CARDIOVASCULAR: No chest pain, orthopnea, PND, no palpitations, no syncope. Reported to feeling weak when getting out of the car PULMONARY: No shortness of breath, no cough, no hemoptysis. GASTROINTESTINAL: No diarrhea, no nausea, no vomiting, no abdominal pain. NEUROLOGICAL: No headaches, no weakness, no numbness. HEMATOLOGICAL: Denies any bleeding or petechiae. GENITOURINARY: Denies any burning micturition, frequency, or urgency. MUSCULOSKELETAL/RHEUMATOLOGICAL: Denies any joint pain, swelling, or any muscle pain. ENDOCRINE: Denies any polyuria or polydipsia. The rest of the 14-point review of systems is negative. PHYSICAL EXAMINATION: GENERAL: The patient is alert and oriented x3, not in any acute distress. Well developed, thin built, elderly appearing HEENT: Pupils are round and equally reacting to light. EOMI. No scleral icterus. No conjunctival pallor. Normocephalic, atraumatic. No pharyngeal erythema. No thyromegaly. CARDIOVASCULAR: S1 and S2 muffled PULMONARY: Diminished breath sounds bilaterally otherwise chest is clear to auscultation, no wheezing or crackles. ABDOMEN: Soft, nontender, nondistended, normoactive bowel sounds. No palpable organomegaly. MUSCULOSKELETAL: No joint swelling or deformity. EXTREMITIES: No cyanosis, clubbing, or pedal edema. NEUROLOGICAL: Gross neurological examination did not reveal any focal deficits. Diffusely weak SKIN: No rashes. Assessment: Possible presyncope, possibly secondary to hypotension History of coronary artery disease with history of PCI stenting to the circumflex on 05/01/2023 History of hyperlipidemia History of hypertension History of depression Former smoker recently quit COPD history Plan: Patient placed on telemetry monitoring and will continue with cardiology follow ing and has placed losartan and metoprolol on hold Patient was given IV Lasix as patient had an elevated BNP on admission and will transition to oral Lasix Patient currently on 2 L via nasal cannula although did not qualify for oxygen and saturations are 100% recommend to wean FiO2 and monitor patient on room air Will have PT/OT therapy evaluate the patient Recommend monitoring overnight on continued telemetry monitoring with possible discharge in the next 24 hours. The impression and plan of care has been dictated by Mariaa Landeros, Nurse Practitioner as directed. Dr. Eyal MD I have performed a history and examination and MDM of this patient, discussed the same with the dictator, and agree with the dictator's assessment and plan as written ,documented as a scribe. Based on total visit time, I have performed more than 50% of the visit. Past Medical History Past Medical History: Hyperlipidemia, Hypertension Additional Past Medical History / Comment(s): varicose veins History of Any Multi-Drug Resistant Organisms: None Reported Past Surgical History: Heart Catheterization With Stent Past Psychological History: Depression Smoking Status: Former smoker Past Alcohol Use History: Occasional Past Drug Use History: None Reported Medications and Allergies Home Medications Medication Instructions Recorded Confirmed Type Magnesium 250 mg PO DAILY 05/01/23 05/02/23 History [place]-3/Dha/Epa/Fish Oil [Fish Oil 1 cap PO DAILY 05/01/23 05/02/23 History 1,000 mg Softgel] Turmeric Root Extract [Turmeric] 500 mg PO DAILY 05/01/23 05/02/23 History Vitamin B Complex 1 cap PO DAILY 05/01/23 05/02/23 History Vitamin D3/Vitamin K2 (Mk4) 1 tab PO DAILY 05/01/23 05/02/23 History [Vitamin K2 Plus D3 Tablet] Aspirin 81 mg PO DAILY #90 tab 05/02/23 05/02/23 Rx Atorvastatin [Lipitor] 40 mg PO HS #90 tab 05/02/23 05/02/23 Rx Furosemide [Lasix] 20 mg PO DAILY #90 tab 05/02/23 05/02/23 Rx Ipratropium-Albuterol Nebulize 3 ml INHALATION RT-QID PRN each 05/02/23 05/02/23 Rx [Duoneb 0.5 mg-3 mg/3 ml Soln] Ipratropium-Albuterol Nebulize 3 ml INHALATION RT-TID 05/02/23 05/02/23 History [Duoneb 0.5 mg-3 mg/3 ml Soln] Losartan [Cozaar] 12.5 mg PO DAILY #90 tab 05/02/23 05/02/23 Rx Metoprolol Tartrate [Lopressor] 25 mg PO BID #180 tab 05/02/23 05/02/23 Rx Nitroglycerin Sl Tabs [Nitrostat] 0.4 mg SUBLINGUAL Q5M PRN #100 tab 05/02/23 05/02/23 Rx Ticagrelor [Brilinta] 90 mg PO BID #180 tab 05/02/23 05/02/23 Rx Allergies Allergy/AdvReac Type Severity Reaction Status Date / Time No Known Allergies Allergy Verified 05/02/23 18:13 Physical Exam Vitals: Vital Signs Temp Pulse Pulse Resp BP BP BP 05/03/23 10:35 80 18 106/55 05/03/23 09:13 97.6 F 80 18 96/66 105/92 05/03/23 08:05 72 18 96/57 05/03/23 07:05 80 19 108/65 05/03/23 04:54 78 18 99/65 05/03/23 04:00 73 20 108/64 05/03/23 02:13 74 23 99/64 05/03/23 01:12 76 14 111/76 05/02/23 23:19 75 22 104/52 05/02/23 22:00 71 20 110/91 05/02/23 21:00 86 16 103/69 05/02/23 20:55 80 21 103/69 05/02/23 20:01 88 18 103/69 05/02/23 18:16 97.6 F 92 19 132/75 05/02/23 17:22 86 18 110/80 05/02/23 17:03 97.9 F 93 17 115/64 BP Pulse Ox 05/03/23 10:35 96 05/03/23 09:13 100/64 98 05/03/23 08:05 96 05/03/23 07:05 97 05/03/23 04:54 98 05/03/23 04:00 98 05/03/23 02:13 100 05/03/23 01:12 98 05/02/23 23:19 98 05/02/23 22:00 100 05/02/23 21:00 100 05/02/23 20:55 95 05/02/23 20:01 99 05/02/23 18:16 100 05/02/23 17:22 98 05/02/23 17:03 93 L Intake and Output 05/02/23 05/03/23 05/03/23 22:59 06:59 14:59 Other: Weight 58.967 kg Results CBC & Chem 7: 05/03/23 07:21 05/03/23 07:21 Labs: Abnormal Lab Results - Last 24 Hours (Table) 05/02/23 05/02/23 05/02/23 Range/Units 17:09 17:09 20:16 Potassium (3.5-5.1) mmol/L BUN 37 H (7-17) mg/dL Creatinine 1.14 H (0.52-1.04) mg/dL Glucose 125 H (74-99) mg/dL ALT 79 H (4-34) U/L Troponin I 0.249 H* 0.210 H* (0.000-0.034) ng/mL Total Protein (6.3-8.2) g/dL 05/02/23 05/03/23 Range/Units 23:58 07:21 Potassium 3.2 L (3.5-5.1) mmol/L BUN 31 H (7-17) mg/dL Creatinine (0.52-1.04) mg/dL Glucose 124 H (74-99) mg/dL ALT 73 H (4-34) U/L Troponin I 0.217 H* (0.000-0.034) ng/mL Total Protein 5.7 L (6.3-8.2) g/dL Thrombosis Risk Factor Assmnt - DVT/VTE Prophylaxis DVT/VTE Prophylaxis: Mechanical Prophylaxis ordered Assessment and Plan Time with Patient: Greater than 30
--- NOTE | 2023-05-03 16:07 | US ---
EXAMINATION TYPE: US carotid duplex BILAT DATE OF EXAM: 05/03/2023 COMPARISON: NONE CLINICAL INDICATION: Female, 82 years old with history of preop TAVR; Preop TAVR, prior smoker TECHNIQUE: Carotid duplex ultrasound examination. Indirect Doppler criteria was utilized. FINDINGS: EXAM MEASUREMENTS: RIGHT: Peak Systolic Velocity (PSV) cm/sec ----- Right CCA: 65.9 ----- Right ICA: 78.2 ----- Right ECA: 96.3 ICA/CCA ratio: 1.2 RIGHT: End Diastole cm/sec ----- Right CCA: 18.9 ----- Right ICA: 21.5 ----- Right ECA: 11.7 LEFT: Peak Systolic Velocity (PSV) cm/sec ----- Left CCA: 49.8 ----- Left ICA: 72.9 ----- Left ECA: 139.9 ICA/CCA ratio: 1.5 LEFT: End Diastole cm/sec ----- Left CCA: 17.0 ----- Left ICA: 12.7 ----- Left ECA: 0.0 VERTEBRALS (direction of flow): Right Vertebral: Antegrade Left Vertebral: Antegrade Rhythm: Arrhythmia MAKE READY WORKER NOTES: Plaque seen within bilateral carotid arteries, bilateral bulbs, and bilateral pr oximal ICAs. Elevated velocity within left ECA. IMPRESSION: Less than 50% stenosis of the bilateral carotid bifurcations. Criteria for Assigning % of Stenosis / Diameter reduction (Estimation based on the indirect measurements of the internal carotid artery velocities (ICA PSV). 1. Normal (no stenosis)=ICA PSV < 125 cm/s: ratio < 2.0: ICA EDV<40 cm/s. 2. Less than 50% stenosis=ICA PSV < 125 cm/s: ratio < 2.0: ICA EDV<40 cm/s. 3. 50 to 69% stenosis=ICA PSV of 125 to 230 cm/s: ration 2.0 ? 4.0: ICA EDV 40-100 cm/s. 4. Greater than 70% stenosis to near occlusion= ICA PSV > 230 cm/s: ratio > 4.0: ICA EDV > 100 cm/s. 5. Near occlusion= ICA PSV velocities may be low or undetectable: variable ratio and ICA EDV. 6. Total occlusion=unable to detect flow.
[2023-05-03] MEDS: POTASSIUM CHLORIDE ER 20 MEQ TAB.ER PO SCH (16:11)
[2023-05-03] MEDS: ATORVASTATIN 40 MG TAB PO SCH (19:59)
[2023-05-04 09:21] LABS: Basophils % (A) 0 %; Eosinophils # (A) 0.4 k/uL (0-0.7); Eosinophils % (A) 4 %; HCT 37.9 % (34.0-46.0); HGB 12.4 gm/dL (11.4-16.0); Lymphocytes # (A) 1.3 k/uL (1.0-4.8); Lymphocytes % (A) 16 %; MCHC 32.8 g/dL (31.0-37.0); MCV 97.8 fL (80.0-100.0); Mean Platelet Volume 8.1; Monocytes # (A) 0.3 k/uL (0-1.0); Monocytes % (A) 4 %; Neutrophils # (A) 6.5 k/uL (1.3-7.7); Neutrophils % (A) 76 %; Platelet Count 228 k/uL (150-450); RBC 3.88 m/uL (3.80-5.40); RDW 13.3 % (11.5-15.5); WBC 8.6 k/uL (3.8-10.6)
[2023-05-04 09:35] LABS: Partial Thromboplastin Time 22.4 sec (22.0-30.0); Prothrombin Time 10.8 sec (10.0-12.5)
[2023-05-04 09:52] LABS: ALT 62 U/L (4-34); AST 29 U/L (14-36); African American GFR (CKD) 71 (>60 ml/min/1.73 sqM); Albumin 3.4 g/dL (3.5-5.0); Alkaline Phosphatase 71 U/L (38-126); Anion Gap 6 mmol/L; Blood Urea Nitrogen 36 mg/dL (7-17); Calcium 8.7 mg/dL (8.4-10.2); Carbon Dioxide 29 mmol/L (22-30); Chloride 103 mmol/L (98-107); Glucose 163 mg/dL (74-99); Magnesium 1.8 mg/dL (1.6-2.3); Non-African American GFR(CKD) 62 (>60 ml/min/1.73 sqM); Potassium 3.6 mmol/L (3.5-5.1); Sodium 138 mmol/L (137-145); Total Bilirubin 0.8 mg/dL (0.2-1.3); Total Protein 5.6 g/dL (6.3-8.2)
--- NOTE | 2023-05-04 12:20 | P.PN ---
Subjective HISTORY OF PRESENT ILLNESS: This is a 82-year-old female with a past medical history significant for coronary artery disease, hypertension, hyperlipidemia, and nicotine dependence. Patient follows in the office with Dr. Billings next [facility] syncope. We have been asked to see the patient in consultation for syncope. Patient examined at the bedside in the emergency room. The patient was discharged home yesterday after undergoing cardiac catheterization with PCI of the circumflex. She was discharged home in stable condition. According to the patient's daughter who was at the bedside, when the patient attempted to get out of the car yesterday after being discharged from the hospital she became weak and her family thought she was going to pass out. The patient did not have a syncopal episode and did not lose consciousness. She denies feeling dizzy or lightheaded. She denies any shortness of breath. She denied any chest pain or pressure. She is stating that she like to be discharged home today. It is noted that the patient's blood pressures have been running on the lower side with a systolic in the 90s. DIAGNOSTICS: - EKG reveals sinus mechanism with T wave inversions in lead I, V5, and V6 - Laboratory data: WBC 9.3. Hemoglobin 12.9. Platelet count 247. Sodium 139. Potassium 3.2. BUN 31. Creatinine 0.81. Magnesium 1.9. Troponin 0.249. 0.10. 0.217. proBNP 26,300 - Current home cardiac medications include aspirin 81 mg daily, Lipitor 40 mg at night, Lasix 20 mg daily, losartan 12.5 mg daily, metoprolol titrate 25 mg twice a day, Brilinta 90 mg twice a day - Most recent echocardiogram obtained in 2019 revealed ejection fraction 55 to 60%, trace to mild AR, moderate aortic stenosis - Cardiac catheterization history: May 01, 2023 with PCI to the circumflex May 04, 2023 Patient examined this morning at the bedside. Patient denies chest pain or pressure. She denies shortness of breath. Blood pressure remains on the softer side with a recent reading of 93/63. Orthostatic blood pressures were unremarkable. She has been evaluated by CT surgery in regards to her aortic stenosis and will follow-up on an outpatient basis. Records obtained from [facility] reveal echocardiogram with ejection fraction 25 to 30%, severe aortic stenosis, moderate to severe aortic regurgitation, and mild MR PHYSICAL EXAM: VITAL SIGNS: Reviewed. GENERAL: Well-developed in no acute distress. HEENT: Head is normocephalic. Pupils are equal, round. Sclerae anicteric. Mucous membranes of the mouth are moist. Neck supple. No JVD or thyromegaly LUNGS: Respirations even and unlabored. Lungs essentially clear to auscultation bilaterally. HEART: Regular rate and rhythm. S1 and S2 heard. Systolic murmur noted ABDOMEN: Soft. Nondistended. Nontender. EXTREMITIES: Normal range of motion. No clubbing or cyanosis. Peripheral pulses intact. No lower extremity edema NEUROLOGIC: Awake and alert. Oriented x 3. ASSESSMENT: Questionable presyncope Borderline hypotension Coronary artery disease with recent PCI to circumflex, May 01, 2023 Severe aortic stenosis Ischemic cardiomyopathy, EF 25 to 30% Hypertension Hyperlipidemia Nicotine dependence with recent cessation PLAN: Continue dual antiplatelet therapy with aspirin and Brilinta Continue statin therapy Continue to hold metoprolol and Cozaar at this time secondary to soft blood pressures Patient may be discharged home from a cardiac standpoint and follow-up in the office with Dr. Billings She is to follow-up on an outpatient basis regarding her aortic stenosis Nurse practitioner note has been reviewed by physician. Signing provider agrees with the documented findings, assessment, and plan of care documented by CANE PUSHER as a scribe. Objective - Vital Signs Vital signs: Vital Signs Temp 97.7 F 05/04/23 04:00 Pulse 71 05/04/23 08:00 Resp 16 05/04/23 08:00 BP 93/63 05/04/23 08:00 Pulse Ox 95 05/04/23 08:00 FiO2 Intake & Output 05/03/23 05/04/23 05/04/23 18:59 06:59 18:59 Intake Total 358 Output Total 400 Balance -400 358 Weight 57.4 kg Intake: Oral 358 Output: Urine 400 Straight 400 Other: # Voids 0 - Labs CBC & Chem 7: 05/04/23 08:55 05/04/23 08:55 Labs: Abnormal Lab Results - Last 24 Hours (Table) 05/04/23 Range/Units 08:55 BUN 36 H (7-17) mg/dL Glucose 163 H (74-99) mg/dL ALT 62 H (4-34) U/L Total Protein 5.6 L (6.3-8.2) g/dL Albumin 3.4 L (3.5-5.0) g/dL
[2023-05-04 13:40] LABS: Hepatitis A Antibody IgM Nonreactive; Hepatitis B Core IgM Nonreactive; Hepatitis B Surface Antigen Nonreactive; Hepatitis C IgG Antibody Nonreactive
[2023-05-04 13:52] LABS: Chol/HDL Ratio 3.06 Ratio; LDL Cholesterol,Calculated 77.1 mg/dL (0.0-131.0)
--- NOTE | 2023-05-04 21:09 | P.PN ---
Subjective Progress Note Date: 05/04/23 This is a 82-year-old female who presented to the emergency department with an episode of possible syncope as patient was getting out of the car as she reports she felt dizzy and lightheaded. Patient was recently hospitalized and underwent PCI stenting 2 days prior and was discharged yesterday when this occurred. Patient with family members at the bedside called EMS and patient was brought back to the hospital. Labs on admission showed a normal white count and CBC with hemoglobin was stable at 13.7, platelets 282, sodium was 137 with a potassium of 3.5 and BUN 37 with a creatinine of 1.14, random glucose was 125. Lactic acid was 1.8 magnesium was 2.1 troponins were elevated at 0.249 and jonathan nding down most likely secondary to the recent catheterization. BNP was 26,300 and patient was started on IV Lasix. EKG showed sinus rhythm with a possible right atrial enlargement. patient was admitted for cardiology evaluation and placed on telemetry monitoring. 05/04/2023 Patient is seen in follow-up this morning currently sitting up in the chair with multiple family members at the bedside. Patient denies any further episodes of dizziness or lightheadedness and Cozaar and metoprolol currently remain on hold. Cardiology following and will continue on telemetry monitoring. Patient has been having more frequent falls with recurrence at the home and family is concerned as she lives alone and continues with significant weakness. Encouraged to increase activity as tolerated and will have PT/OT therapy evaluate the patient. Patient currently maintained on 2 L via nasal cannula with no reports of shortness of breath and recommend to wean FiO2 as tolerated. Patient is afebrile and denies any chest pain or palpitations. Review of systems: Constitutional: No reports of fatigue, fever, or chills Cardiovascular: No reports of chest pain or palpitations Respiratory: No reports of shortness of breath or cough GI: No reports of nausea, vomiting, or diarrhea : No reports of dysuria or retention Neurovascular: reports of generalized weakness All medications have been reviewed The rest of the 14-point review of systems is negative. PHYSICAL EXAMINATION: GENERAL: The patient is alert and oriented x3, not in any acute distress. Well developed, thin built, elderly appearing HEENT: Pupils are round and equally reacting to light. EOMI. No scleral icterus. No conjunctival pallor. Normocephalic, atraumatic. No pharyngeal erythema. No thyromegaly. CARDIOVASCULAR: S1 and S2 muffled PULMONARY: Diminished breath sounds bilaterally otherwise chest is clear to auscultation, no wheezing or crackles. ABDOMEN: Soft, nontender, nondistended, normoactive bowel sounds. No palpable organomegaly. MUSCULOSKELETAL: No joint swelling or deformity. EXTREMITIES: No cyanosis, clubbing, or pedal edema. NEUROLOGICAL: Gross neurological examination did not reveal any focal deficits. Diffusely weak SKIN: No rashes. Assessment: Possible presyncope, possibly secondary to hypotension History of coronary artery disease with history of PCI stenting to the circumflex on 05/01/2023 History of hyperlipidemia History of hypertension Severe aortic stenosis Ischemic cardiomyopathy with an EF of 25 to 30% History of depression Former smoker recently quit COPD history Plan: Patient placed on telemetry monitoring and will continue with cardiology following and will continue to hold losartan and metoprolol on hold. Cardiology recommending outpatient follow-up with Dr. Billings Patient was also evaluated by CT surgery for the aortic stenosis and will follow-up in the outpatient setting. Some testing was completed Patient transition to oral Lasix and will continue other current regimen Patient currently on 2 L and recommend to wean FiO2 as tolerated Multiple family members at the bedside with questions and concerns that were answered to the best of our ability. Patient has been having recurrent falls with increased weakness in the home and are fearful for her discharging home as she lives alone and will fall again. Will have PT/OT therapy evaluate the patient Due to multiple complex medical issues, prognosis is guarded The impression and plan of care has been dictated by Mariaa Landeros, Nurse Practitioner as directed. Dr. Eyal MD I have performed a history and examination and MDM of this patient, discussed the same with the dictator, and agree with the dictator's assessment and plan as written ,documented as a scribe. Based on total visit time, I have performed more than 50% of the visit. Objective - Vital Signs Vital signs: Vital Signs Temp 97.6 F 05/04/23 19:44 Pulse 95 05/04/23 19:44 Resp 15 05/04/23 19:44 BP 123/80 05/04/23 19:44 Pulse Ox 93 L 05/04/23 19:44 FiO2 Intake & Output 05/04/23 05/04/23 05/05/23 06:59 18:59 06:59 Intake Total 358 Output Total 400 500 Balance -400 -142 Weight 57.4 kg Intake: Oral 358 Output: Urine 400 500 Straight 400 Other: # Voids 0 - Labs CBC & Chem 7: 05/04/23 08:55 05/04/23 08:55 Labs: Abnormal Lab Results - Last 24 Hours (Table) 05/04/23 05/04/23 Range/Units 08:55 08:55 BUN 36 H (7-17) mg/dL Glucose 163 H (74-99) mg/dL Hemoglobin A1c 6.3 H (<=6.0) % ALT 62 H (4-34) U/L Total Protein 5.6 L (6.3-8.2) g/dL Albumin 3.4 L (3.5-5.0) g/dL Triglycerides 163.00 H (0.00-149.00) mg/dL
[2023-05-04] MEDS ORDERED: ACETAMINOPHEN TAB 325 MG TAB PO PRN (21:10)
--- NOTE | 2023-05-05 11:15 | P.PN ---
Subjective HISTORY OF PRESENT ILLNESS: This is a 82-year-old female with a past medical history significant for coronary artery disease, hypertension, hyperlipidemia, and nicotine dependence. Patient follows in the office with Dr. Billings next [facility] syncope. We have been asked to see the patient in consultation for syncope. Patient examined at the bedside in the emergency room. The patient was discharged home yesterday after undergoing cardiac catheterization with PCI of the circumflex. She was discharged home in stable condition. According to the patient's daughter who was at the bedside, when the patient attempted to get out of the car yesterday after being discharged from the hospital she became weak and her family thought she was going to pass out. The patient did not have a syncopal episode and did not lose consciousness. She denies feeling dizzy or lightheaded. She denies any shortness of breath. She denied any chest pain or pressure. She is stating that she like to be discharged home today. It is noted that the patient's blood pressures have been running on the lower side with a systolic in the 90s. DIAGNOSTICS: - EKG reveals sinus mechanism with T wave inversions in lead I, V5, and V6 - Laboratory data: WBC 9.3. Hemoglobin 12.9. Platelet count 247. Sodium 139. Potassium 3.2. BUN 31. Creatinine 0.81. Magnesium 1.9. Troponin 0.249. 0.10. 0.217. proBNP 26,300 - Current home cardiac medications include aspirin 81 mg daily, Lipitor 40 mg at night, Lasix 20 mg daily, losartan 12.5 mg daily, metoprolol titrate 25 mg twice a day, Brilinta 90 mg twice a day - Most recent echocardiogram obtained in 2019 revealed ejection fraction 55 to 60%, trace to mild AR, moderate aortic stenosis - Cardiac catheterization history: May 01, 2023 with PCI to the circumflex May 04, 2023 Patient examined this morning at the bedside. Patient denies chest pain or pressure. She denies shortness of breath. Blood pressure remains on the softer side with a recent reading of 93/63. Orthostatic blood pressures were unremarkable. She has been evaluated by CT surgery in regards to her aortic stenosis and will follow-up on an outpatient basis. Records obtained from [facility] reveal echocardiogram with ejection fraction 25 to 30%, severe aortic stenosis, moderate to severe aortic regurgitation, and mild MR May 05, 2023 Patient examined this morning at the bedside. Patient currently denies chest pain or pressure. She denies shortness of breath. Vital signs are stable. Most recent blood pressure 96/63. She denies any dizziness or lightheadedness. Telemetry reveals sinus mechanism. PHYSICAL EXAM: VITAL SIGNS: Reviewed. GENERAL: Well-developed in no acute distress. HEENT: Head is normocephalic. Pupils are equal, round. Sclerae anicteric. Mucous membranes of the mouth are moist. Neck supple. No JVD or thyromegaly LUNGS: Respirations even and unlabored. Lungs essentially clear to auscultation bilaterally. HEART: Regular rate and rhythm. S1 and S2 heard. Systolic murmur noted ABDOMEN: Soft. Nondistended. Nontender. EXTREMITIES: Normal range of motion. No clubbing or cyanosis. Peripheral pulses intact. No lower extremity edema NEUROLOGIC: Awake and alert. Oriented x 3. ASSESSMENT: Questionable presyncope Borderline hypotension Coronary artery disease with recent PCI to circumflex, May 01, 2023 Severe aortic stenosis Ischemic cardiomyopathy, EF 25 to 30% Hypertension Hyperlipidemia Nicotine dependence with recent cessation PLAN: Continue dual antiplatelet therapy with aspirin and Brilinta Continue statin therapy Continue to hold metoprolol and Cozaar at this time secondary to soft blood pressures Patient may be discharged home from a cardiac standpoint and follow-up in the office with Dr. Billings She is to follow-up on an outpatient basis regarding her aortic stenosis PT OT consulted. Family is requesting patient to go to subacute rehab at the time of discharge. Nurse practitioner note has been reviewed by physician. Signing provider agrees with the documented findings, assessment, and plan of care documented by LOCOMOTIVE MECHANIC as a scribe. Objective - Vital Signs Vital signs: Vital Signs Temp 98.0 F 05/05/23 08:00 Pulse 66 05/05/23 08:00 Resp 16 05/05/23 08:00 BP 96/63 05/05/23 08:00 Pulse Ox 94 L 05/05/23 08:00 FiO2 Intake & Output 05/04/23 05/05/23 05/05/23 18:59 06:59 18:59 Intake Total 358 240 Output Total 500 75 100 Balance -142 -75 140 Intake: Oral 358 240 Output: Urine 500 100 Post Void Residual 75 - Labs CBC & Chem 7: 05/04/23 08:55 05/04/23 08:55 Labs: Abnormal Lab Results - Last 24 Hours (Table) 05/04/23 05/04/23 Range/Units 08:55 08:55 Hemoglobin A1c 6.3 H (<=6.0) % Triglycerides 163.00 H (0.00-149.00) mg/dL
[2023-05-05] MEDS ORDERED: ZINC OXIDE 20% OINT 28.4 GM TUBE TOPICAL PRN (13:47)
[2023-05-05] MEDS: guaiFENesin-DM 100-10MG/5ML 10 ML CUP PO PRN (20:40)
--- NOTE | 2023-05-06 06:37 | P.PN ---
Subjective Progress Note Date: 05/05/23 This is a 82-year-old female who presented to the emergency department with an episode of possible syncope as patient was getting out of the car as she reports she felt dizzy and lightheaded. Patient was recently hospitalized and underwent PCI stenting 2 days prior and was discharged yesterday when this occurred. Patient with family members at the bedside called EMS and patient was brought back to the hospital. Labs on admission showed a normal white count and CBC with hemoglobin was stable at 13.7, platelets 282, sodium was 137 with a potassium of 3.5 and BUN 37 with a creatinine of 1.14, random glucose was 125. Lactic acid was 1.8 magnesium was 2.1 troponins were elevated at 0.249 and jonathan nding down most likely secondary to the recent catheterization. BNP was 26,300 and patient was started on IV Lasix. EKG showed sinus rhythm with a possible right atrial enlargement. patient was admitted for cardiology evaluation and placed on telemetry monitoring. 05/04/2023 Patient is seen in follow-up this morning currently sitting up in the chair with multiple family members at the bedside. Patient denies any further episodes of dizziness or lightheadedness and Cozaar and metoprolol currently remain on hold. Cardiology following and will continue on telemetry monitoring. Patient has been having more frequent falls with recurrence at the home and family is concerned as she lives alone and continues with significant weakness. Encouraged to increase activity as tolerated and will have PT/OT therapy evaluate the patient. Patient currently maintained on 2 L via nasal cannula with no reports of shortness of breath and recommend to wean FiO2 as tolerated. Patient is afebrile and denies any chest pain or palpitations. 05/05/2023 Patient is seen and evaluated in follow-up today with cardiology following. Continue to hold Cozaar and metoprolol close outpatient follow-up with ca rdiology. Patient also to follow-up with cardiothoracic surgery regarding aortic stenosis and initial testing has been started. Patient is afebrile with no reports of chest pain or shortness of breath. Patient currently sitting up in the bed on room air and denies any coughing or changes in breathing status. Patient has had progressive weakness over the last few weeks and more frequent falls per family and will have PT/OT therapy evaluate the patient. Family would like the patient to go to [facility] as patient does live alone and they feel she is unsafe to return home. Review of systems: Constitutional: No reports of fatigue, fever, or chills Cardiovascular: No reports of chest pain or palpitations Respiratory: No reports of shortness of breath or cough GI: No reports of nausea, vomiting, or diarrhea : No reports of dysuria or retention Neurovascular: reports of generalized weakness All medications have been reviewed PHYSICAL EXAMINATION: GENERAL: The patient is alert and oriented x3, not in any acute distress. Well developed, thin built, elderly appearing HEENT: Pupils are round and equally reacting to light. EOMI. No scleral icterus. No conjunctival pallor. Normocephalic, atraumatic. No pharyngeal erythema. No thyromegaly. CARDIOVASCULAR: S1 and S2 muffled PULMONARY: Diminished breath sounds bilaterally otherwise chest is clear to auscultation, no wheezing or crackles. ABDOMEN: Soft, nontender, nondistended, normoactive bowel sounds. No palpable organomegaly. MUSCULOSKELETAL: No joint swelling or deformity. EXTREMITIES: No cyanosis, clubbing, or pedal edema. NEUROLOGICAL: Gross neurological examination did not reveal any focal deficits. Diffusely weak SKIN: No rashes. Assessment: Possible presyncope, possibly secondary to hypotension History of coronary artery disease with history of PCI stenting to the circumflex on 05/01/2023 History of hyperlipidemia History of hypertension Severe aortic stenosis Ischemic cardiomyopathy with an EF of 25 to 30% History of depression Former smoker recently quit COPD history Plan: Patient placed on telemetry monitoring and will continue with cardiology following and will continue to hold losartan and metoprolol on hold. Cardiology recommending outpatient follow-up with Dr. Billings Patient was also evaluated by CT surgery for the aortic stenosis and will follow-up in the outpatient setting. Some testing was completed Patient transition to oral Lasix and will continue other current regimen Patient currently on room air Multiple family members at the bedside with questions and concerns that were answered to the best of our ability. Patient has been having recurrent falls with increased weakness in the home and are fearful for her discharging home as she lives alone and will fall again. Will have PT/OT therapy evaluate the patient. Family feels patient would benefit from ECF for continued strength and mobility. Due to multiple complex medical issues, prognosis is guarded The impression and plan of care has been dictated by Mariaa Landeros, Nurse Practitioner as directed. Dr. Eyal MD I have performed a history and examination and MDM of this patient, discussed the same with the dictator, and agree with the dictator's assessment and plan as written ,documented as a scribe. Based on total visit time, I have performed more than 50% of the visit. Objective - Vital Signs Vital signs: Vital Signs Temp 98.0 F 05/05/23 08:00 Pulse 93 05/05/23 16:00 Resp 18 05/05/23 16:00 BP 107/62 05/05/23 16:00 Pulse Ox 97 05/05/23 16:00 FiO2 Intake & Output 05/04/23 05/05/23 05/05/23 18:59 06:59 18:59 Intake Total 358 350 Output Total 500 75 700 Balance -142 -75 -350 Intake: Oral 358 350 Output: Urine 500 700 Post Void Residual 75 - Labs CBC & Chem 7: 05/04/23 08:55 05/04/23 08:55
--- NOTE | 2023-05-06 07:29 | P.PN ---
Progress Note - Text Progress Note Date: 05/04/23 Met with patient and her daughters, discussed transcatheter aortic valve replacement at length. All preoperative testing completed except TAVR CTA to be done as outpatient, our office will get insurance authorization and arrange. Patient will need dental clearance, discussed with the patient. Our contact information was given to patient, all questions were answered. Formal consult to be dictated when patient follows in the office.
--- NOTE | 2023-05-06 13:03 | P.PN ---
Subjective Progress Note Date: 05/06/23 This is a 82-year-old female who presented to the emergency department with an episode of possible syncope as patient was getting out of the car as she reports she felt dizzy and lightheaded. Patient was recently hospitalized and underwent PCI stenting 2 days prior and was discharged yesterday when this occurred. Patient with family members at the bedside called EMS and patient was brought back to the hospital. Labs on admission showed a normal white count and CBC with hemoglobin was stable at 13.7, platelets 282, sodium was 137 with a potassium of 3.5 and BUN 37 with a creatinine of 1.14, random glucose was 125. Lactic acid was 1.8 magnesium was 2.1 troponins were elevated at 0.249 and jonathan nding down most likely secondary to the recent catheterization. BNP was 26,300 and patient was started on IV Lasix. EKG showed sinus rhythm with a possible right atrial enlargement. patient was admitted for cardiology evaluation and placed on telemetry monitoring. 05/04/2023 Patient is seen in follow-up this morning currently sitting up in the chair with multiple family members at the bedside. Patient denies any further episodes of dizziness or lightheadedness and Cozaar and metoprolol currently remain on hold. Cardiology following and will continue on telemetry monitoring. Patient has been having more frequent falls with recurrence at the home and family is concerned as she lives alone and continues with significant weakness. Encouraged to increase activity as tolerated and will have PT/OT therapy evaluate the patient. Patient currently maintained on 2 L via nasal cannula with no reports of shortness of breath and recommend to wean FiO2 as tolerated. Patient is afebrile and denies any chest pain or palpitations. 05/05/2023 Patient is seen and evaluated in follow-up today with cardiology following. Continue to hold Cozaar and metoprolol close outpatient follow-up with ca rdiology. Patient also to follow-up with cardiothoracic surgery regarding aortic stenosis and initial testing has been started. Patient is afebrile with no reports of chest pain or shortness of breath. Patient currently sitting up in the bed on room air and denies any coughing or changes in breathing status. Patient has had progressive weakness over the last few weeks and more frequent falls per family and will have PT/OT therapy evaluate the patient. Family would like the patient to go to [facility] as patient does live alone and they feel she is unsafe to return home. 05/06/2023 Patient is seen and evaluated in follow-up today and has been cleared by cardiology for outpatient follow-up. Continue on current medication regimen and recommending follow-up in [address] Billings. Patient denies any chest pain or shortness of breath. Patient tolerating diet with no reported nausea or vomiting. Patient is maintaining oxygen saturations above 90% on room air. Continue with incentive spirometer. Patient was evaluated by physical therapy and did relatively well although family is concerned as she has been having more frequent falls and is home alone often and currently working on arrangements as her bedroom is up a flight of stairs and family arranging to have the room moved downstairs and asking for a hospital bed. Patient does have history of severe aortic stenosis as well as COPD and will require a hospital bed as patient needs the head of the bed elevated more than 30 degrees at all times to alleviate her dyspnea. Will also arrange for home care with possible PT/OT therapy outpatient and discharge planning in 24 hours. Review of systems: Constitutional: No reports of fatigue, fever, or chills Cardiovascular: No reports of chest pain or palpitations Respiratory: No reports of shortness of breath or cough GI: No reports of nausea, vomiting, or diarrhea : No reports of dysuria or retention Neurovascular: reports of generalized weakness All medications have been reviewed PHYSICAL EXAMINATION: GENERAL: The patient is alert and oriented x3. Well developed, thin built, elderly appearing HEENT: Pupils are round and equally reacting to light. EOMI. No scleral icterus. No conjunctival pallor. Normocephalic, atraumatic. No pharyngeal erythema. No thyromegaly. CARDIOVASCULAR: S1 and S2 muffled PULMONARY: Diminished breath sounds bilaterally otherwise chest is clear to auscultation, no wheezing or crackles. ABDOMEN: Soft, nontender, nondistended, normoactive bowel sounds. No palpable organomegaly. MUSCULOSKELETAL: No joint swelling or deformity. EXTREMITIES: No cyanosis, clubbing, or pedal edema. NEUROLOGICAL: Gross neurological examination did not reveal any focal deficits. Diffusely weak SKIN: No rashes. Assessment: Possible presyncope, secondary to hypotension History of coronary artery disease with history of PCI stenting to the ci rcumflex on 05/01/2023 History of hyperlipidemia History of hypertension Severe aortic stenosis Ischemic cardiomyopathy with an EF of 25 to 30% History of depression Former smoker recently quit COPD history Plan: Patient to continue on telemetry monitoring and will continue with cardiology following and will continue to hold losartan and metoprolol on hold. Cardiology recommending outpatient follow-up with Dr. Billings Patient was also evaluated by CT surgery for the aortic stenosis and will follow-up in the outpatient setting. Some testing was completed. Patient is scheduled for an outpatient CT of the chest for tomorrow at 10:30 AM Patient transitioned to oral Lasix and will continue other current regimen Patient currently on room air Multiple family members at the bedside with questions and concerns that were answered to the best of our ability. Patient has been having recurrent falls with increased weakness in the home and are fearful for her discharging home as she lives alone and will fall again. PT/OT therapy evaluated the patient including stairs and did well and case management following arranging for home with home care and possible rehab in the outpatient setting. Family making arrangements in the home setting as patient's bedroom and bathroom is up 13 steps in the home and patient has been having more frequent falls with concerns of her falling again and moving her room downstairs. Due to multiple complex medical issues, prognosis is guarded Patient will discharge in 24 hours The impression and plan of care has been dictated by Mariaa Landeros, Nurse Practitioner as directed. Dr. Eyal MD I have performed a history and examination and MDM of this patient, discussed the same with the dictator, and agree with the dictator's assessment and plan as written ,documented as a scribe. Based on total visit time, I have performed more than 50% of the visit. Objective - Vital Signs Vital signs: Vital Signs Temp 98.0 F 05/05/23 08:00 Pulse 69 05/06/23 03:16 Resp 16 05/06/23 03:16 BP 130/69 05/06/23 03:16 Pulse Ox 96 05/06/23 03:16 FiO2 Intake & Output 05/05/23 05/06/23 05/06/23 18:59 06:59 18:59 Intake Total 350 0 Output Total 1300 298 Balance -950 -298 Intake: Oral 350 0 Output: Urine 1300 Post Void Residual 298 - Labs CBC & Chem 7: 05/04/23 08:55 05/04/23 08:55
--- NOTE | 2023-05-06 14:58 | P.PN ---
Subjective Progress Note Date: 05/06/23 HISTORY OF PRESENT ILLNESS: This is a 82-year-old female with a past medical history significant for co ronary artery disease, hypertension, hyperlipidemia, and nicotine dependence. Patient follows in the office with Dr. Billings next [facility] syncope. We have been asked to see the patient in consultation for syncope. Patient examined at the bedside in the emergency room. The patient was discharged home yesterday after undergoing cardiac catheterization with PCI of the circumflex. She was discharged home in stable condition. According to the patient's daughter who was at the bedside, when the patient attempted to get out of the car yesterday after being discharged from the hospital she became weak and her family thought she was going to pass out. The patient did not have a syncopal episode and did not lose consciousness. She denies feeling dizzy or lightheaded. She denies any shortness of breath. She denied any chest pain or pressure. She is stating that she like to be discharged home today. It is noted that the patient's blood pressures have been running on the lower side with a systolic in the 90s. DIAGNOSTICS: - EKG reveals sinus mechanism with T wave inversions in lead I, V5, and V6 - Laboratory data: WBC 9.3. Hemoglobin 12.9. Platelet count 247. Sodium 139. Potassium 3.2. BUN 31. Creatinine 0.81. Magnesium 1.9. Troponin 0.249. 0.10. 0.217. proBNP 26,300 - Current home cardiac medications include aspirin 81 mg daily, Lipitor 40 mg at night, Lasix 20 mg daily, losartan 12.5 mg daily, metoprolol titrate 25 mg twice a day, Brilinta 90 mg twice a day - Most recent echocardiogram obtained in 2019 revealed ejection fraction 55 to 60%, trace to mild AR, moderate aortic stenosis - Cardiac catheterization history: May 01, 2023 with PCI to the circumflex May 04, 2023 Patient examined this morning at the bedside. Patient denies chest pain or pressure. She denies shortness of breath. Blood pressure remains on the softer side with a recent reading of 93/63. Orthostatic blood pressures were unremarkable. She has been evaluated by CT surgery in regards to her aortic stenosis and will follow-up on an outpatient basis. Records obtained from [facility] reveal echocardiogram with ejection fraction 25 to 30%, severe aortic stenosis, moderate to severe aortic regurgitation, and mild MR May 05, 2023 Patient examined this morning at the bedside. Patient currently denies chest pain or pressure. She denies shortness of breath. Vital signs are stable. Most recent blood pressure 96/63. She denies any dizziness or lightheadedness. Telemetry reveals sinus mechanism. 05/06 Patient denies having any chest pain or pressure. She denies any lightheadedness or dizziness. Heart rate is in the 80s and 90s, blood pressure 116/65. Patient continues to have a cough but no fever or chills. Cough is productive. She has been seen by cardiothoracic surgery regarding the TAVR outpatient clinic follow-up. She has a CAT scan scheduled for tomorrow and dental appointment this week as well. Patient encouraged to follow low-sodium diet. PHYSICAL EXAM: VITAL SIGNS: Reviewed. GENERAL: Well-developed in no acute distress. HEENT: Head is normocephalic. Pupils are equal, round. Sclerae anicteric. Mucous membranes of the mouth are moist. Neck supple. No JVD or thyromegaly LUNGS: Respirations even and unlabored. Lungs essentially clear to auscultation bilaterally. HEART: Regular rate and rhythm. S1 and S2 heard. Systolic murmur noted ABDOMEN: Soft. Nondistended. Nontender. EXTREMITIES: Normal range of motion. No clubbing or cyanosis. Peripheral pulses intact. No lower extremity edema NEUROLOGIC: Awake and alert. Oriented x 3. ASSESSMENT: Questionable presyncope Borderline hypotension Coronary artery disease with recent PCI to circumflex, May 01, 2023 Severe aortic stenosis Ischemic cardiomyopathy, EF 25 to 30% Hypertension Hyperlipidemia Nicotine dependence with recent cessation PLAN: Continue dual antiplatelet therapy with aspirin and Brilinta Continue statin therapy Continue to hold metoprolol and Cozaar at this time secondary to soft blood pressures Patient may be discharged home from a cardiac standpoint and follow-up in the office with Dr. Billings She is to follow-up on an outpatient basis regarding her aortic stenosis Nurse practitioner note has been reviewed by physician. Signing provider agrees with the documented findings, assessment, and plan of care documented by [employer] WELLNESS INSTRUCTOR as a scribe. Objective - Vital Signs Vital signs: Vital Signs Temp 98.3 F 05/06/23 08:00 Pulse 83 05/06/23 12:00 Resp 16 05/06/23 12:00 BP 116/65 05/06/23 12:00 Pulse Ox 99 05/06/23 12:00 FiO2 Intake & Output 05/05/23 05/06/23 05/06/23 18:59 06:59 18:59 Intake Total 350 0 360 Output Total 1300 298 850 Balance -950 -298 -490 Intake: Oral 350 0 360 Output: Urine 1300 850 Post Void Residual 298 Other: Voiding Method Toilet # Voids 1 - Labs CBC & Chem 7: 05/04/23 08:55 05/04/23 08:55
[2023-05-07 08:48] VITALS: BP 112/72; PULSE 84; RESP 18; TEMP 97.7
--- NOTE | 2023-05-07 08:57 | CT ---
EXAMINATION TYPE: CT TAVR Planning DATE OF EXAM: 05/07/2023 HISTORY: Non Rheumatic Aortic Valve Insufficiency CT DLP: 1453.70 mGycm Automated Exposure Control for Dose Reduction was Utilized. CONTRAST: CT scan of the chest, abdomen and pelvis is performed with IV Contrast, patient injected with 125 ml mL of Isovue 370. COMPARISON: No direct comparisons. TECHNIQUE: Helical imaging obtained through the chest, abdomen and pelvis during arterial phase lay ginger administration of radiographic contrast intravenously. FINDINGS: See report from [facility] regarding preprocedural planning CHEST: Lower Neck and Thyroid: No significant findings Lungs: No significant findings Central Airway: No significant findings Pleura: No significant findings Pulmonary Arteries: No significant findings Heart and Pericardium: No significant findings Lymph Nodes: No significant findings Mediastinum & Esophagus: No significant findings Other: Less than 50% stenosis at the bilateral carotid bifurcations with right greater than left. Add itional three-vessel aortic arch. Ascending thoracic aortic aneurysm measuring up to 4.0 cm. The aort ic root measures up to 2.7 cm. The descending thoracic aorta measuring up to 2.4 cm. ABDOMEN/PELVIS: Please note arterial phase of the imaging limits detailed evaluation of the solid abdominal organs. Liver: No significant findings Spleen: No significant findings Kidneys: No significant findings Adrenal Glands: No significant findings Pancreas: No significant findings Gallbladder: No significant findings Bowel and Mesentery: No significant findings Lymph Nodes: No significant findings Urinary Bladder: No significant findings Pelvic Organs: No significant findings Other: Mild to moderate osteoarthritic changes of the left hip. Multilevel degenerative changes of th e entire spine. Other Lines/Tubes/Devices/Hardware: None Vascular: Infrarenal abdominal aortic ectasia measuring up to 2.6 cm. Mild atherosclerotic calcificat ion of the aorta and its branches. Mild to moderate stenosis of the proximal celiac artery with posts tenotic dilatation a 1.0 cm (series 11, image 494). At least mild stenosis of the origin of the JUAN LUIS. Abnormal appearance of the aortic bifurcation with a chronic appearing dissection involving the proxi mal aspect of the right common iliac artery and a chronic appearing dissection extending through the majority of the left common iliac artery. (Series 11, image 347 through 9354). IMPRESSION: 1. 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 2. Ascending thoracic aortic aneurysm measuring up to 4.0 cm. Infrarenal abdominal aortic ectasia radha suring up to 2.6 cm.
--- NOTE | 2023-05-12 10:28 | P.DS ---
Providers Date of admission: 05/02/23 18:54 Expected date of discharge: 05/07/23 Attending physician: Vannesa Altman Consults: 05/02/23 18:53 Consult Physician Routine Consulting Provider: Max Castañeda Consult Reason/Comments: kash Do you want consulting provider notified?: Yes Primary care physician: Odin Qureshi [facility] Course: Final diagnosis Possible presyncope, secondary to hypotension History of coronary artery disease with history of PCI stenting to the circumflex on 05/01/2023 History of hyperlipidemia History of hypertension Severe aortic stenosis Ischemic cardiomyopathy with an EF of 25 to 30% History of depression Former smoker recently quit COPD history Discharge disposition Patient is being discharged in a stable condition with guarded prognosis to home. Patient will follow-up with Dr. Qureshi in the outpatient setting upon discharge. Patient is to continue with holding metoprolol and Cozaar for now with close outpatient follow-up with cardiology this week as scheduled. Patient is following up outpatient with cardiothoracic surgeries for TAVR as well. Total time taken is greater than 35 minutes. Hospital course This is a 82-year-old female who was recently admitted with most likely hypotension related to new medication status postcardiac catheterization with stenting on previous admission. Patient was brought back to the emergency department by family as patient was attempting to get out of the car and unable to and felt like she was passing out. Patient has been evaluated by cardiology recommending to hold Cozaar and metoprolol for now with close outpatient follow- up. Patient also being evaluated by CT surgery for possible TAVR and workup has been initiated. Patient will follow with Dr. Oliva in the outpatient setting as scheduled this week as well. Patient with weakness and most recently having more falls family concern with patient going home and was evaluated by physical therapy recommending home with home care as she did not qualify for rehab. Arrangements are being made by family in the home to accommodate patient on the lower level. Patient has been cleared by consultations. Please refer to consultation notes for further HPI. Currently no reports of chest pain, shortness of breath, or palpitations. Patient is afebrile. No reports of nausea or vomiting and patient is tolerating diet. Patient will be discharged home today. Physical exam: Gen: This is a 82-year-old female who is awake, alert and oriented x 3, well- developed, thin built, elderly appearing HEENT: Head is atraumatic, normocephalic. Pupils equal, round. Sclerae is anicteric. NECK: Supple. No JVD. No lymphadenopathy. No thyromegaly. LUNGS: Clear to auscultation. No wheezes or rhonchi. No intercostal retractions. HEART: Regular rate and rhythm. No murmur. ABDOMEN: Soft. Bowel sounds are present. No masses. No tenderness. EXTREMITIES: No pedal edema. No calf tenderness. NEUROLOGICAL: Patient is awake, alert and oriented x3. Cranial nerves 2 through 12 are grossly intact. Please refer to medication reconciliation sheet for a list of medications. The impression and plan of care has been dictated by Mariaa Landeros, Nurse Practitioner as directed. Dr. Olya MD I have performed a history and examination and MDM of this patient, discussed the same with the dictator, and agree with the dictator's assessment and plan as written ,documented as a scribe. Based on total visit time, I have performed more than 50% of the visit. Patient Condition at Discharge: Fair Plan - Discharge Summary Discharge Rx Participant: No New Discharge Prescriptions: New Acetaminophen Tab [Tylenol] 650 mg PO Q6HR PRN tab PRN Reason: Fever And/ Or Pain Continue Turmeric Root Extract [Turmeric] 500 mg PO DAILY Vitamin D3/Vitamin K2 (Mk4) [Vitamin K2 Plus D3 Tablet] 1 tab PO DAILY Furosemide [Lasix] 20 mg PO DAILY #90 tab Ipratropium-Albuterol Nebulize [Duoneb 0.5 mg-3 mg/3 ml Soln] 3 ml INHALATION RT-QID PRN each PRN Reason: Shortness Of Breath Or Wheezing Ipratropium-Albuterol Nebulize [Duoneb 0.5 mg-3 mg/3 ml Soln] 3 ml INHALATION RT-TID Vitamin B Complex 1 cap PO DAILY Magnesium 250 mg PO DAILY Harmony-3/Dha/Epa/Fish Oil [Fish Oil 1,000 mg Softgel] 1 cap PO DAILY Aspirin 81 mg PO DAILY #90 tab Ticagrelor [Brilinta] 90 mg PO BID #180 tab Atorvastatin [Lipitor] 40 mg PO HS #90 tab Nitroglycerin Sl Tabs [Nitrostat] 0.4 mg SUBLINGUAL Q5M PRN #100 tab PRN Reason: Chest Pain Discontinued Metoprolol Tartrate [Lopressor] 25 mg PO BID #180 tab Losartan [Cozaar] 12.5 mg PO DAILY #90 tab Discharge Medication List Magnesium 250 mg PO DAILY 05/01/23 [History] Harmony-3/Dha/Epa/Fish Oil [Fish Oil 1,000 mg Softgel] 1 cap PO DAILY 05/01/23 [History] Turmeric Root Extract [Turmeric] 500 mg PO DAILY 05/01/23 [History] Vitamin B Complex 1 cap PO DAILY 05/01/23 [History] Vitamin D3/Vitamin K2 (Mk4) [Vitamin K2 Plus D3 Tablet] 1 tab PO DAILY 05/01/23 [History] Aspirin 81 mg PO DAILY #90 tab 05/02/23 [Rx] Atorvastatin [Lipitor] 40 mg PO HS #90 tab 05/02/23 [Rx] Furosemide [Lasix] 20 mg PO DAILY #90 tab 05/02/23 [Rx] Ipratropium-Albuterol Nebulize [Duoneb 0.5 mg-3 mg/3 ml Soln] 3 ml INHALATION RT-QID PRN each 05/02/23 [Rx] Ipratropium-Albuterol Nebulize [Duoneb 0.5 mg-3 mg/3 ml Soln] 3 ml INHALATION RT-TID 05/02/23 [History] Nitroglycerin Sl Tabs [Nitrostat] 0.4 mg SUBLINGUAL Q5M PRN #100 tab 05/02/23 [Rx] Ticagrelor [Brilinta] 90 mg PO BID #180 tab 05/02/23 [Rx] Acetaminophen Tab [Tylenol] 650 mg PO Q6HR PRN tab 05/06/23 [Rx] Follow up Appointment(s)/Referral(s): Octavio Billings DO [STAFF PHYSICIAN] - 1 Week (Call and make nina) Odin Qureshi MD [Primary Care Provider] - 1-2 days (Call and make nina) [facility] [NON-STAFF] - 05/13/23 (Will call with appointment time) [facility] Visiting Nurse, [NON-STAFF] - (Call and make nina) Patient Instructions/Handouts: Syncope (DC) Activity/Diet/Wound Care/Special Instructions: Activity limited until follow-up Follow-up with primary care provider on discharge Follow-up with cardiology in 1 to 2 weeks Follow-up with cardiothoracic surgery as discussed Discharge/Stand Alone Forms: Who Do I Call?, Assisted Living Facilities, Community Resources, Help In The Home, Personal Crop Research Scientist Discharge Disposition: HOME WITH HOME HEALTH SERVICES
== END 2023-05-07 10:08 | disposition home health service (06) | DRG 316 ==
LOC: EC 16:42 → 3SCARD 18:54
PROVIDERS: ADMIT Hospitalist; ATTEND Hospitalist
DX: I95.9 Hypotension, unspecified (principal); I35.0 Nonrheumatic aortic (valve) stenosis; I25.10 Atherosclerotic heart disease of native coronary artery without angina pectoris; Z95.5 Presence of coronary angioplasty implant and graft; Z87.891 Personal history of nicotine dependence; Z79.899 Other long term (current) drug therapy; I83.90 Asymptomatic varicose veins of unspecified lower extremity; F32.A Depression, unspecified; J44.9 Chronic obstructive pulmonary disease, unspecified; I25.5 Ischemic cardiomyopathy; Z79.82 Long term (current) use of aspirin; I10 Essential (primary) hypertension; R29.6 Repeated falls; Z60.2 Problems related to living alone; Z79.02 Long term (current) use of antithrombotics/antiplatelets
CPT/HCPCS: 36415; 51702; 71275; 74174; 80053; 80061; 80074; 83036; 83605; 83735; 83880; 84100; 84443; 84484; 85025; 85610; 85730; 93005; 93880; 94150; 96361; 96375; 99291

== ENCOUNTER → 2023-06-13 | Outpatient (CLI) | payer MEDICARE ==
--- NOTE | 2023-06-13 15:51 | US ---
EXAMINATION TYPE: US venous doppler duplex LE RT DATE OF EXAM: 06/13/2023 3:30 PM COMPARISON: NONE CLINICAL INDICATION: Female, 82 years old with history of R60.0 LOCALIZED EDEMA; swelling in right an kle yesterday, got better over night, no h/o dvt SIDE PERFORMED: Right TECHNIQUE: The lower extremity deep venous system is examined utilizing real time linear array sonog danette with graded compression, doppler sonography and color-flow sonography. VESSELS IMAGED: Common Femoral Vein Deep Femoral Vein Greater Saphenous Vein * Femoral Vein Popliteal Vein Small Saphenous Vein * Proximal Calf Veins (* superficial vessels) Right Leg: Negative for DVT IMPRESSION: No evidence of deep venous thrombosis.
== END | disposition home or self-care (01) ==
LOC: RADUSWWP 15:09
PROVIDERS: ATTEND Internal Medicine
DX: R60.0 Localized edema (principal)

== ENCOUNTER → 2023-06-13 | Outpatient (CLI) | payer MEDICARE ==
[2023-06-13 17:09] LABS: Partial Thromboplastin Time 21.7 sec (22.0-30.0)
[2023-06-14 02:03] LABS: Basophils # (A) 0.01 X 10*3/uL (0.00-0.10); Basophils % (A) 0.2 %; Eosinophils % (A) 3.4 %; HCT 38.8 % (37.2-46.3); HGB 12.7 g/dL (12.0-15.0); Lymphocytes # (A) 1.23 X 10*3/uL (0.90-5.00); Lymphocytes % (A) 21.2 %; MCH 32.1 pg (27.0-32.0); MCHC 32.7 g/dL (32.0-37.0); Mean Platelet Volume 10.2 FL (9.5-12.2); Monocytes # (A) 0.39 X 10*3/uL (0.20-1.00); Monocytes % (A) 6.7 %; NRBC Per 100 WBC 0 X 10*3/uL (0.00-0.01); Neutrophils # (A) 3.96 X 10*3/uL (1.80-7.70); Neutrophils % (A) 68.3 %; Platelet Count 297 X 10*3/uL (140-440); RBC 3.96 X 10*6/uL (4.10-5.20)
[2023-06-14 02:35] LABS: ALT 23 U/L (8-44); AST 18 U/L (13-35); Albumin 4.5 g/dL (3.8-4.9); Albumin/Globulin Ratio 2.37 Ratio (1.60-3.17); Alkaline Phosphatase 97 U/L (41-126); Blood Urea Nitrogen 23.6 mg/dL (9.0-27.0); Calcium 9.1 mg/dL (8.7-10.3); Carbon Dioxide 22.7 mmol/L (21.6-31.8); Chloride 94 mmol/L (96-109); Globulin 1.9 g/dL (1.6-3.3); Glucose 103 mg/dL (70-110); Potassium 4.2 mmol/L (3.5-5.5); Sodium 149 mmol/L (135-145); Total Bilirubin 0.2 mg/dL (0.3-1.2); Total Protein 6.4 g/dL (6.2-8.2)
== END | disposition home or self-care (01) ==
LOC: LABPAT 15:16
PROVIDERS: ATTEND Thoracic Surgery (Cardiothoracic Vascular Surgery)
DX: Z01.812 Encounter for preprocedural laboratory examination (principal); I35.0 Nonrheumatic aortic (valve) stenosis; Z79.899 Other long term (current) drug therapy; Z79.01 Long term (current) use of anticoagulants
CPT/HCPCS: 36415; 80053; 85025; 85610; 85730; 86850; 86900; 86901

== ENCOUNTER 2023-06-26 07:29 | Inpatient (IN) | payer MEDICARE ==
[~2023-06-26 07:29] MED LIST: ASPIRIN 325 MG TAB PO ONE; ATORVASTATIN 10 MG TAB PO ONE; CLEVIDIPINE BUTYRATE 25 MG in EMPTY BAG 1 BAG IV PRN; CLOPIDOGREL 75 MG TAB PO ONE; ELECTROLYTE-A SOLUTION 1,000 ML with POTASSIUM CHLORIDE 100 MEQ, MAGNESIUM SULFATE 16 M... IV PRN; INSULIN REGULAR 100 UNIT in SODIUM CHLORIDE 0.9% 100 ML IV PRN; LACTATED RINGERS 1,000 ML IV SCH; METOPROLOL TARTRATE 25 MG TAB PO ONE; NITROGLYCERIN-D5W PMX 25 MG/250 ML BTL IV PRN; PROTAMINE SULFATE 250 MG in EMPTY BAG 1 BAG IV PRN; TRANEXAMIC ACID 2,000 MG in SODIUM CHLORIDE 0.9% 80 ML IV PRN
[2023-06-26] MEDS: SODIUM CHLORIDE 0.9% 500 ML 500 ML INTRAARTER PRN (07:37)
[2023-06-26] MEDS: METOPROLOL TARTRATE 50 MG TAB PO ONE (08:03)
[2023-06-26] MEDS: ATORVASTATIN 80 MG TAB PO ONE (08:04)
[2023-06-26] MEDS ORDERED: TICAGRELOR 90 MG TAB PO STA (08:26)
[2023-06-26] MEDS: TICAGRELOR 90 MG TAB PO ONE (08:30)
[2023-06-26] MEDS ORDERED: NEOSTIGMINE 1 MG/ML 10 ML VIAL ONE (10:37)
[2023-06-26] MEDS ORDERED: PHENYLEPHRINE-0.9% NACL SYG 1,000 MCG/10 ML SYRINGE ONE (10:37)
[2023-06-26] MEDS ORDERED: fentaNYL (PF) 50 MCG/ML 2 ML AMP ONE (10:37)
[2023-06-26] MEDS ORDERED: LIDOCAINE 1% INJ 10MG/ML (20 ML MDV) ONE (10:37)
[2023-06-26] MEDS ORDERED: HYDROmorphone (PF) 1 MG/ML ONE (10:37)
[2023-06-26] MEDS ORDERED: PROTAMINE SULFATE 10 MG/ML 5 ML VIAL ONE (10:37)
[2023-06-26] MEDS ORDERED: ePHEDrine 50 MG/ML 1 ML VIAL ONE (10:37)
[2023-06-26] MEDS ORDERED: PROPOFOL 10 MG/ML 20 ML VIAL IV ONE (10:37)
[2023-06-26] MEDS ORDERED: GLYCOPYRROLATE 0.2 MG/ML 2 ML VIAL ONE (10:37)
[2023-06-26] MEDS ORDERED: SUCCINYLCHOLINE CHLORIDE 200 MG/10 ML VIAL IV ONE (10:37)
[2023-06-26] MEDS ORDERED: ROCURONIUM 10 MG/ML (5 ML VIAL) IV ONE (10:37)
[2023-06-26] MEDS: LACTATED RINGERS 1,000 ML IV ONE (12:25)
[2023-06-26] MEDS: IOPAMIDOL-370 100ML BTL INJ ONE ×2 (12:37)
--- NOTE | 2023-06-26 12:49 | OP ---
OPERATIVE REPORT DATE OF SERVICE : 06/26/2023 ATTENDING INSTALLATION DRAFTER: Max Castañeda MD PREOPERATIVE DIAGNOSIS: Severe symptomatic aortic stenosis. POSTOPERATIVE DIAGNOSIS: Severe symptomatic aortic stenosis. PROCEDURES PERFORMED: Transcatheter transfemoral aortic valve replacement with Boudreaux 23 mm S3 ultra transcatheter aortic valve, placement of a temporary pacemaker lead via the femoral vein with intraoperative transesophageal echocardiogram. ANESTHESIA: General. BLOOD LOSS: 100 mL. DESCRIPTION OF PROCEDURE: The patient was brought to the operating room and placed in supine position. Following administration of general endotracheal anesthetic, placement of arterial line, adequate IV access, the body was prepped and draped in normal sterile fashion using chlorhexidine paint and sterile towels. At this point, please note that the remainder the TAVR procedure will be dictated by Dr. Max Castañeda of Cardiology. Please note, I was present for the entire procedure and fully incompletely deployed the 23 mm Boudreaux S3 ultra transcatheter aortic valve in the correct anatomical position with excellent results confirmed by AVE. MMODL / IJN: [id number] /
--- NOTE | 2023-06-26 12:57 | P.ANPRN ---
Procedure Note - Anesthesia - Invasive Line Right Arterial Line Time Out Performed: Yes Date of Procedure: 06/26/23 Location of Patient: [facility] Preparation: Sterile Prep, Sterile Dressing Arterial Line Location: Briachial Ultrasound Used: No Purpose - Visualization and Identification of Vasculature: No Narrative: Invasive line placement per sterile protocol utilized.Informed consent obtained from the patient. Procedure was performed under complete aseptic precautions. The right wrist is slightly extended and placed on a roll of cloth. Brachial artery palpated and appeared to have a intact collateral circulation. Front of AC fossa was cleaned with ChloraPrep. It was draped and 2 mL of 1% lidocaine w as infiltrated . A 20-gauge 4 and half inch Arrow arterial catheter was inserted and a bright red blood/back was noticed. It was connected to the pressure monitoring line and the flashback was confirmed. The line was sutured into the skin. Tegaderm dressing was applied. Patient tolerated the procedure very well with no apparent complications. n - AVE Intraop Pre Bypass AVE Intraop - Anesthesia Indication: transcatheter aortic valve replacement Date of Procedure: 06/26/23 Pre-operative Diagnosis: severe aortic stenosis Post-operative Diagnosis: severe aortic stenosis status post-transcatheter aortic valve replacement Surgeon: Paco Valencia Left Ventricle: ejection fraction 30-35%. Global hypokinesia noted. Ejection Fraction: Normal Regional Wall Motion Abnormalities: None Left Ventricle Hypertrophy: Yes (mild) R. Ventricle Function: Normal Aortic Valve: significantly calcified aortic valve noted. Mean gradient across the valve was 32 mmHg peak gradient is 53 mmHg area 0.6 cm. Anatomy: Trileaflet Aortic Stenosis: Severe Aortic Regurgitation: Mild Mitral Stenosis: None Mitral Regurgitation: Mild Tricuspid Stenosis: None Tricuspid Regurgitation: Mild Pulmonic Stenosis: None R. Atrial Dilation: No R. Atrial PFO: No L. Atrial Dilation: No Aortic Dissection: No Plural Effusion: None - AVE Intraop Post Bypass AVE Intraop Post Bypass Procedure Performed: transcatheter aortic valve replacement Left Ventricle: ejection fraction 30-35% R. Ventricle Function: Normal Aortic Valve: prosthetic aortic valve noted in situ. Trace paravalvular leak noted. Peak gradient 3 mm of Hg, mean gradient 2 mm of Hg. Mitral Valve: Unchanged Tricuspid: Unchanged Aortic Dissection: No
[2023-06-26] MEDS ORDERED: ACETAMINOPHEN TAB 500 MG TAB PO PRN (12:59)
[2023-06-26] MEDS ORDERED: CALCIUM GLUCONATE IN NACL 2 GM in SALINE 1 100ML.BAG IVPB PRN (12:59)
[2023-06-26] MEDS ORDERED: Magnesium Replacement Protocol 1 EACH MISC MISCELLANE PRN (12:59)
[2023-06-26] MEDS ORDERED: ONDANSETRON 4 MG/2 ML VIAL IVP PRN (12:59)
[2023-06-26] MEDS ORDERED: Potassium Replacement Protocol 1 EACH MISC MISCELLANE PRN (12:59)
[2023-06-26 13:30] LABS: Glucose,Whole Blood 129 mg/dL (70-110)
[2023-06-26 13:33] LABS: Basophils % (A) 0 %; Eosinophils # (A) 0.2 k/uL (0-0.7); Eosinophils % (A) 4 %; HGB 10.6 gm/dL (11.4-16.0); Lymphocytes # (A) 0.9 k/uL (1.0-4.8); Lymphocytes % (A) 19 %; MCH 32.9 pg (25.0-35.0); MCV 99.6 fL (80.0-100.0); Mean Platelet Volume 9.6; Monocytes # (A) 0.2 k/uL (0-1.0); Monocytes % (A) 4 %; Neutrophils # (A) 3.4 k/uL (1.3-7.7); Neutrophils % (A) 72 %; Platelet Count 177 k/uL (150-450); RBC 3.21 m/uL (3.80-5.40); RDW 13.7 % (11.5-15.5); WBC 4.7 k/uL (3.8-10.6)
--- NOTE | 2023-06-26 13:39 | XR ---
EXAMINATION TYPE: XR chest 1V portable DATE OF EXAM: 06/26/2023 1:28 PM CLINICAL INDICATION:Female, 82 years old with history of Post Operative Cardiac Surgery; [facility] COMPARISON: Chest radiographs from 05/02/2023 TECHNIQUE: XR chest 1V portable Frontal view of the chest. FINDINGS: Lungs/Pleura: Subsegmental atelectasis is present in the lung bases. No evidence of pleural effusion. Pulmonary vascularity: Unremarkable. Heart/mediastinum: Cardiomediastinal silhouette is unremarkable. Atherosclerotic calcifications are seen in the aorta. Interval placement of aortic stent. Musculoskeletal: No acute osseous pathology. IMPRESSION: 1. No acute cardiopulmonary disease/process. 2. Interval placement of aortic valve stent
[2023-06-26] MEDS: SODIUM CHLORIDE 0.9% 1,000 ML IV SCH (14:05)
[2023-06-26] MEDS: CLEVIDIPINE BUTYRATE 25 MG in EMPTY BAG 1 BAG IV SCH (14:05)
--- NOTE | 2023-06-26 14:18 | P.PCN ---
Date of Procedure: 06/26/23 Operative Findings: TRANSCATHETER AORITC VALVE REPLACEMENT OPERATIVE REPORT PROCEDURE PERFORMED: 1. Percutaneous Aortic Valve Implantation using 23 mm Boudreaux valve 2. Transesophageal echocardiography (performed by anesthesia) 3. Ultrasound guided access of bilateral femoral artery access 4. Placement of temporary pacemaker wire. 5. Aortic root angiography 6. IVUS of bilateral iliac and aorta INDICATIONS: 1. 82 year-old with a history of severe symptomatic aortic valve stenosis. The patient was experiencing shortness of breath consistent with NYHA class II PERFORMING PHYSICIANS: 1. Max Castañeda MD Interventional Cardiology 2. Janet Marquez DO Interventional cardiology 3. Paco Valencia, Cardiothoracic Surgeon. SEDATION: General anesthesia provided by anesthesia, see separate note APPROACH: Bilateral femoral artery via percutaneous approach PROCEDURE DESCRIPTION: The patient was discussed at valve clinic with multidisciplinary approach with cardiothoracic surgeon as well as mortgage coordinator and thought better treated with TAVR. Risks, benefits, and alternatives of the procedure had been explained to the patient who understood the risks and agreed to proceed. Please note that before the procedure we discussed femoral access and alternative access including tetanus carotid access and transapical access and uric aortic access. 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 After consents were obtained, patient was brought to the transcatheter aortic valve implantation room in the cardiac [facility] and general anesthesia was provided by the anesthesiologist (see separate report). Once full body sterile prep was performed, the left common femoral artery was cannulated using micropuncture technique under ultrasound guidance and micropuncture wire passed easily then I placed initially a 5-Angolan 23 cm bright tip sheath at the left common femoral artery overall 35 stiff Glidewire. With careful manipulating of the wire and with a backup support of 035 catheter I was able to advance a wire into the aorta. Subsequently I did pull the wire out and injected contrast through the sheath to prove that I was in the true lumen. To confirm that I was in the triple-lumen for the whole segment of aortoiliac I did exchange my 035 wire into a 14 wire using 035 catheter and I did intravascular ultrasound of the aorta and left iliac and that showed that I was in the true lumen. Subsequently the right common femoral artery was cannulated using micropuncture technique under ultrasound guidance and the micropuncture wire passed easily then I placed a 6-Angolan 23 cm bright tip sheath at that the right common femoral artery. Doing the same technique with careful manipulating of the 035 stiff Glidewire and with a backup support of 035 catheter I was also able to detect the wire into the aorta and subsequently admitted pulled the wire out and injected contrast through the catheter to prove that I was in the true lumen. Also to improve that I was in the true lumen for the whole length I did exchange my 035 wire into a 14 wire and I did again intravascular ultrasound and that showed that I was in the true lumen as well. At that point I accessed the left common femoral vein using micropuncture technique under ultrasound guidance and I placed a 6-Angolan 23 cm sheath at the left common femoral vein and then I did advanced and saphenous pacer wire with a balloon tip under fluoroscopy guidance to the RV where the pacer was set up for a backup heart rate of 60 and 5 of AMP. After that I did deploy the Perclose devices at 11:00 and 2:00 and then I was able to advance the 035 stiff Glidewire to the aorta. The wire was free and was not in any dissection plane. Subsequently I did exchange my 23 cm bright tip sheath to 55 cm 6-Angolan sheath over an 035 stiff Glidewire and the sheath was advanced all the way to the proximal descending aorta. Subsequently the sheath was flushed. An then we advanced a pigtail catheter to the right coronary cusp. Subsequently the SideArm of the sheath was connected to a pressure transfuse her and then the pigtail catheter was connected into an injection tubing. After that on the right side I did exchange my 6-Angolan sheath after the Perclose devices where deployed into the 14-Angolan sheath over a stiff 035 Safari wire. The sheath was advanced over the wire very carefully. At that point anticoagulation was initiated using heparin with continuous ACT monitoring. Then we were able to cross the aortic valve using an AL-1 catheter with a straight 035 wire. Subsequently the catheter was advanced over the wire into the left ventricle and then we did exchange the catheter into the pigtail catheter where we did simultaneous pressure gradient from the LV and the aorta and the mean gradient came in to be around 35 mmHg. At that point we did place the Safari wire in the pigtail catheter and then the pigtail catheter was pulled out. At that point and angiogram was performed through the pigtail in the aortic root. Subsequently the valve was advanced under fluoroscopy guidance through the 14-Angolan sheath with a careful watching the valve going in the descending aorta and aortic arch and then the ascending aorta and the valve was then advanced through the aortic valve. The valve was then deployed in proper position using with rapid pacing in conjuncture with aortic root angiography and AVE. The delivery system was withdrawn back. The AVE demonstrated a satisfactory result. There was trivial para valvular leak. There was no evidence of any other significant abnormalities. The preclose Perclose was then deployed in the right femoral artery but unfortunately we could not achieve hemostasis which is expected. Please note that we did exchange the long sheath into short sheath which was 14-Angolan sheath. After that hemostasis was achieved manually temporally to we were able to go up and over from the left femoral artery to the right after I was able to use a 5-Angolan rim catheter and 035 stiff Glidewire and then advance to 45 cm sheath through the right external iliac artery. Then hemostasis was performed using a 6 mm x 60 mm balloon inflated at the right common femoral artery for 10 minutes with angiogram subsequently showing good hemostasis. After that the left common femoral sheath was exchanged into 11 cm sheath. Manual pullback was performed. The procedure was completed was no complication COMPLICATIONS: None RECOMMENDATIONS: The patient will be monitored in the ICU for hemodynamic and electrical stability. Patient will be on aspirin and Plavix.
[2023-06-26 14:23] LABS: African American GFR (CKD) 88 (>60 ml/min/1.73 sqM); Anion Gap 7 mmol/L; Blood Urea Nitrogen 19 mg/dL (7-17); Calcium 8.3 mg/dL (8.4-10.2); Carbon Dioxide 20 mmol/L (22-30); Chloride 112 mmol/L (98-107); Glucose 119 mg/dL (74-99); Non-African American GFR(CKD) 77 (>60 ml/min/1.73 sqM); Potassium 4.1 mmol/L (3.5-5.1); Sodium 139 mmol/L (137-145)
[2023-06-26] MEDS: IPRATROPIUM-ALBUTEROL 3 ML NEB INHALATION SCH ×2 (15:55→21:08)
[2023-06-26] MEDS: IPRATROPIUM-ALBUTEROL 3 ML NEB INHALATION PRN (18:43)
[2023-06-26] MEDS: ATORVASTATIN 40 MG TAB PO SCH (20:18)
[2023-06-26] MEDS: TICAGRELOR 90 MG TAB PO SCH (20:18)
--- NOTE | 2023-06-26 21:27 | P.CONS ---
History of Present Illness - Reason for Consult Consult date: 06/26/23 Medical management Requesting physician: Paco Valencia - Chief Complaint Post TAVR, severe dyspnea and shortness of breath, - History of Present Illness HISTORY OF PRESENT ILLNESS: 82-year-old woman my office patient well-known for long time with past medical history of hypertension, hyperlipidemia, chronic history of asthma she had previous history of atherosclerotic heart disease post angioplasty and stent placement of the circumflex coronary artery, also had previous history of stroke no apparent major residual. Her echocardiogram showed severe aortic stenosis with severe cardiomyopathy with ejection fraction of 25-50 percentile, patient had recurrent signs and symptoms of severe presyncope and dizziness with worsening symptoms. With a low ejection fraction and severe aortic stenosis underwent transesophageal echocardiogram which verified severe aortic stenosis with dimension of 0.16 and she has been feeling fairly well except continue to have slight shortness of breath with exertion also continue to have slight lower extremity edema. She will schedule for elective TAVR and despite having to have shortness of breath with exertion has been feeling better lately with no angina chest pain or problem. Patient has been previously symptomatic with congestive heart failure and cardiomyopathy class III symptoms. She was scheduled elective TAVR which was done today successfully with cardiology with femoral approach and ended up coming to the ICU after procedure. Patient is resting comfortably still have O2 still feeling slightly shortness of breath but no chest pain or angina no neuro loss at this point. REVIEW OF SYSTEMS: CONSTITUTIONAL: Well-developed mild respiratory distress. EYES: No icterus sclerae, no conjunctivitis. EARS, NOSE, MOUTH, THROAT, and FACE: No sore throat, lymphadenopathy, carotid bruits or deformity. RESPIRATORY: Slight shortness of breath cough and wheezes. CARDIOVASCULAR: Positive indeterminate palpitation no angina. GASTROINTESTINAL: No Abd pain, Nausea or vomiting, no Diarrhea or constipation, No GI Bleed, no distention or masses. GENITOURINARY: Negative for Hematuria or UTI, no kidney stones. INTEGUMENT/BREAST: Negative for any muscular injury with mild osteoarthritis.. HEMATOLOGIC/LYMPHATIC: Mild anemia and bruises. MUSCULOSKELTAL: Still have slight scoliosis with mild lower back pain. NEURLOGICAL: No LOC, Sz or syncope, blurred vision dizziness or abnormality.. BEHAVIORAL/PSYCH: Negative. ENDOCRINE: Negative. PHYSICAL EXAMINATION: General Appearance: Alert, cooperative, no distress, does not look in any respiratory distress. Neck HEENT: Supple, no lymphadenopathy, no thyroid enlargement, no carotid bruits. Lungs: Clear to auscultation with fine rhonchi and slight expiratory wheezes no crackles. Chest Wall: Decreased expansion with deep inspiration no tenderness and no deformity was found on exam, no costochondral pain or discomfort. Heart: Regular rhythm and rate S1-S2, positive S3, not been able to hear any aor tic stenosis murmur still have slight systolic murmur in the left second costal space. Back: Symmetric, no curvature, ROM normal, no CVA tenderness. Abdomen: Soft, non-tender, bowel sounds active all four quadrants, no masses, no organomegaly. Extremities: Extremities normal, atraumatic, no cyanosis or edema. Slight discoloration lower part of the leg. Pulses: 2+ and symmetric. Skin: Skin color, texture, tugor normal, no rashes or lesions. Neurologic: Alert oriented x3 cranial nerves II through XII intact, no motor deficit, no abnormal balance or gait. ASSESSMENT AND PLAN: _Severe symptomatic aortic stenosis: Post TAVR, patient be admitted to ICU continue to watch patient hemodynamic status carefully. _Severe cardiomyopathy: Ejection fraction of 25-30 percentile. Will continue medical management eventually might benefit from being on Entresto beta-mitesh along with spironolactone in the meanwhile she was on furosemide and metoprolol only continue to watch for any worsening symptoms with exertion. _Severe dyspnea and shortness of breath: Was a combination of cardiomyopathy along with severe aortic stenosis and combined with COPD as well. _Atherosclerotic heart disease: Post angioplasty and stent of the circumflex, still seeing cardiology. _Hyperlipidemia: Remain on atorvastatin 40 mg a day. _Severe reactive airway/COPD, not on any steroid at this point, updraft treatment with albuterol/ipratropium will be done and should add probably Pulmicort. _Chronic tobacco use: Has been off nicotine at this point does not require any patch. _GI prophylaxis: Use either Pepcid or Protonix. _DVT prophylaxis: CODE STATUS: Full code. Dr. Valencia thank you much for the consult if I can be any further help to please let me know Past Medical History Past Medical History: COPD, Hyperlipidemia, Hypertension, Myocardial Infarction ([place]), Osteoarthritis (OA) Additional Past Medical History / Comment(s): varicose veins,SOB w/ exertion,aortic stenosis Last Myocardial Infarction Date:: unk History of Any Multi-Drug Resistant Organisms: None Reported Past Surgical History: Heart Catheterization With Stent Additional Past Surgical History / Comment(s): bra[place] cataracts removed Past Anesthesia/Blood Transfusion Reactions: No Reported Reaction Date of Last Stent Placement:: 05/01/23 Smoking Status: Former smoker - Past Family History Father Family Medical History: No Reported History Mother Family Medical History: No Reported History Medications and Allergies Home Medications Medication Instructions Recorded Confirmed Type Aspirin 81 mg PO DAILY #90 tab 05/02/23 06/26/23 Rx Atorvastatin [Lipitor] 40 mg PO HS #90 tab 05/02/23 06/26/23 Rx Ipratropium-Albuterol Nebulize 3 ml INHALATION RT-QID PRN each 05/02/23 06/24/23 Rx [Duoneb 0.5 mg-3 mg/3 ml Soln] Nitroglycerin Sl Tabs [Nitrostat] 0.4 mg SUBLINGUAL Q5M PRN #100 tab 05/02/23 06/24/23 Rx Ticagrelor [Brilinta] 90 mg PO BID #180 tab 05/02/23 06/26/23 Rx Furosemide [Lasix] 20 mg PO Q48H 06/13/23 06/26/23 History Allergies Allergy/AdvReac Type Severity Reaction Status Date / Time No Known Allergies Allergy Verified 06/26/23 07:45 Physical Exam Vitals: Vital Signs Temp Pulse Pulse Resp BP BP Pulse Ox 06/26/23 18:43 80 06/26/23 18:00 73 12 139/63 96 06/26/23 17:00 63 18 128/54 93 L 06/26/23 16:00 97.4 F L 60 18 95 06/26/23 15:30 61 18 98 06/26/23 15:15 51 L 14 94 L 06/26/23 15:00 96.2 F L 48 L 16 98 06/26/23 14:45 60 18 97 06/26/23 14:30 57 L 17 95 06/26/23 14:15 47 L 16 95 06/26/23 14:00 46 L 15 96 06/26/23 13:45 64 17 94 L 06/26/23 13:30 95.9 F L 46 L 14 95 06/26/23 07:48 97.8 F 80 20 142/83 98 Intake and Output 06/26/23 06/26/23 06/26/23 06:59 14:59 22:59 Intake Total 1326 162 Balance 1326 162 Intake: IV 1326 162 0.9 70 100 ceFAZolin 2 gm In Sodium 50 Chloride 0.9% 50 ml @ 100 mls/hr IVPB Q8HR [facility] Rx# :[id number] pressure bag 6 12 Other: Voiding Method External Catheter Weight 61.2 kg ABP, PAP, CO, CI - Last 8 Hours Arterial Blood Pressure 158/61 Arterial Blood Pressure 132/53 Arterial Blood Pressure 132/55 Arterial Blood Pressure 137/58 Arterial Blood Pressure 132/55 Arterial Blood Pressure 132/59 Arterial Blood Pressure 125/55 Arterial Blood Pressure 118/50 Arterial Blood Pressure 115/50 Arterial Blood Pressure 115/48 Arterial Blood Pressure 123/52 Results CBC & Chem 7: 06/26/23 13:31 06/26/23 13:45 Labs: Abnormal Lab Results - Last 24 Hours (Table) 06/26/23 06/26/23 06/26/23 Range/Units 13:28 13:31 13:45 RBC 3.21 L (3.80-5.40) m/uL Hgb 10.6 L (11.4-16.0) gm/dL Hct 32.0 L (34.0-46.0) % Lymphocytes # 0.9 L (1.0-4.8) k/uL Chloride 112 H (98-107) mmol/L Carbon Dioxide 20 L (22-30) mmol/L BUN 19 H (7-17) mg/dL Glucose 119 H (74-99) mg/dL POC Glucose (mg/dL) 129 H (70-110) mg/dL Calcium 8.3 L (8.4-10.2) mg/dL
[2023-06-26] MEDS: HEPARIN SODIUM,PORCINE 5,000 UNIT/ML 1 ML VIAL SQ SCH (23:13)
[2023-06-27 06:09] LABS: Basophils % (A) 0 %; Eosinophils # (A) 0.1 k/uL (0-0.7); Eosinophils % (A) 2 %; HCT 30.5 % (34.0-46.0); HGB 10.5 gm/dL (11.4-16.0); Lymphocytes # (A) 0.7 k/uL (1.0-4.8); Lymphocytes % (A) 12 %; MCH 33.7 pg (25.0-35.0); MCHC 34.4 g/dL (31.0-37.0); MCV 97.9 fL (80.0-100.0); Mean Platelet Volume 8.2; Monocytes # (A) 0.3 k/uL (0-1.0); Monocytes % (A) 5 %; Neutrophils # (A) 4.9 k/uL (1.3-7.7); Neutrophils % (A) 79 %; Platelet Count 177 k/uL (150-450); RBC 3.12 m/uL (3.80-5.40); RDW 13.8 % (11.5-15.5); WBC 6.2 k/uL (3.8-10.6)
[2023-06-27 07:20] LABS: ALT 24 U/L (4-34); AST 31 U/L (14-36); African American GFR (CKD) >90 (>60 ml/min/1.73 sqM); Albumin 3.3 g/dL (3.5-5.0); Alkaline Phosphatase 80 U/L (38-126); Anion Gap 7 mmol/L; Blood Urea Nitrogen 13 mg/dL (7-17); Calcium 8.8 mg/dL (8.4-10.2); Carbon Dioxide 21 mmol/L (22-30); Chloride 108 mmol/L (98-107); Glucose 115 mg/dL (74-99); Magnesium 1.8 mg/dL (1.6-2.3); Non-African American GFR(CKD) 86 (>60 ml/min/1.73 sqM); Potassium 3.8 mmol/L (3.5-5.1); Sodium 136 mmol/L (137-145); Total Bilirubin 0.7 mg/dL (0.2-1.3); Total Protein 5.4 g/dL (6.3-8.2)
[2023-06-27] MEDS: PANTOPRAZOLE 40 MG TABLET PO SCH (08:14)
[2023-06-27] MEDS: METOPROLOL TARTRATE 12.5 MG TAB PO SCH (08:14)
[2023-06-27] MEDS: MAGNESIUM SULFATE-D5W PMX 1 GM in DEXTROSE/WATER 1 100ML.BAG IVPB SCH (08:14)
[2023-06-27] MEDS: ASPIRIN 81 MG PO SCH (08:14)
[2023-06-27] MEDS: POTASSIUM CHLORIDE ER 20 MEQ TAB.ER PO SCH (08:14)
[2023-06-27] MEDS ORDERED: bisacodyL 10 MG SUPP RECTAL PRN (09:00)
[2023-06-27] MEDS ORDERED: MAGNESIUM HYDROXIDE 2,400 MG/30 ML CUP PO PRN (09:00)
--- NOTE | 2023-06-27 09:13 | XR ---
EXAM: XR chest 1V portable CLINICAL INDICATION:Female, 82 years old with history of Post Operative Cardiac Surgery; [facility] COMPARISON: 06/26/2023 and before TECHNIQUE: Chest single view. FINDINGS: Lines/tubes/devices: EKG leads overlie the chest. No indwelling lines are seen. Cardiomediastinum: Cardiac silhouette appears stable, mildly to moderately enlarged. Since 05/02/2023, tortuosity and ectasia of the aorta seems to have become increasingly prominent. Ath erosclerotic calcifications are again seen. Status post TAVR, evidently placed sometime between 2023 and 06/26/2023. Vasculature: No increased pulmonary vasculature. Lungs/pleura: Mild chronic appearing interstitial changes. Mild subsegmental atelectasis in the lung bases. No foca l airspace opacities. No sizable effusion or evidence of pneumothorax. Bones/soft tissues: Bony thorax appears grossly unchanged as seen. Remote healed right rib fracture deformities. Regional soft tissues appear unremarkable. IMPRESSION: 1. Stable mild to moderate enlargement of the cardiac silhouette. Status post TAVR. 2. Increasingly prominent tortuosity and ectasia of the aorta. Consider CTA chest dissection protoco l for better evaluation. 3. No acute pulmonary abnormality.
[2023-06-27] MEDS: CLOPIDOGREL 75 MG TAB PO STA (09:33)
[2023-06-27 12:08] VITALS: BP 126/73; RESP 15; TEMP 98.2; BMI 24.6
--- NOTE | 2023-06-27 12:56 | CA ---
Transthoracic Echo Report Name: Sahra Sullivan Age: 82 Gender: F : 1940 Exam Date: 06/27/2023 08:54 Exam Location: [place] [facility] Ht (in): 63 Wt (lb): 134 Ordering Physician: Mike Hernández Attending/Referring Phys: Edgar PELAEZ [employer] Clerk Elda Spears RCS Procedure CPT: Indications: post op TAVR Cardiac Hx: Technical Quality: Technically difficult study Contrast 1: Definity Total Dose (mL): 2 Contrast 2: Total Dose (mL): MEASUREMENTS (Male / Female) Normal Values 2D ECHO LV Diastolic Diameter PLAX 5.2 cm 4.2 - 5.9 / 3.9 - 5.3 cm LV Systolic Diameter PLAX 4.3 cm IVS Diastolic Thickness 0.8 cm 0.6 - 1.0 / 0.6 - 0.9 cm LVPW Diastolic Thickness 1.0 cm 0.6 - 1.0 / 0.6 - 0.9 cm LV Relative Wall Thickness 0.4 RV Internal Dim ED PLAX 1.8 cm LVOT Diameter 2.0 cm LV Diastolic Volume MOD BP 159.7 cm??? 67 - 155 / 56 - 104 cm??? LV Systolic Volume MOD BP 108.0 cm??? 22 - 58 / 19 - 49 cm??? LV Ejection Fraction MOD BP 32.4 % >= 55 % LV Cardiac Index MOD BP 2659.7 cm???/min???m??? LV Diastolic Volume MOD 4C 167.1 cm??? LV Systolic Volume MOD 4C 110.7 cm??? LV Ejection Fraction MOD 4C 33.7 % LV Cardiac Index MOD 4C 2902.4 cm???/min???m??? LV Diastolic Length 4C 9.0 cm LV Systolic Length 4C 8.0 cm LV Diastolic Volume MOD 2C 150.9 cm??? LV Systolic Volume MOD 2C 106.0 cm??? LV Ejection Fraction MOD 2C 29.8 % LV Cardiac Index MOD 2C 2313.2 cm???/min???m??? LV Diastolic Length 2C 8.9 cm LV Systolic Length 2C 8.0 cm LA Volume 53.8 cm??? 18 - 58 / 22 - 52 cm??? LA Volume Index 32.6 cm???/m??? 16 - 28 cm???/m??? DOPPLER AV Peak Velocity 229.8 cm/s AV Peak Gradient 21.1 mmHg AV Mean Velocity 172.1 cm/s AV Mean Gradient 12.7 mmHg AV Velocity Time Integral 41.7 cm LVOT Peak Velocity 135.8 cm/s LVOT Peak Gradient 7.4 mmHg LVOT Velocity Time Integral 25.5 cm LVOT Stroke Volume 78.3 cm??? LVOT Stroke Volume Index 48.0 ml/m??? LVOT Cardiac Index 4030.9 cm???/min???m??? AV Area Cont Eq vti 1.9 cm??? AV Area Cont Eq pk 1.8 cm??? Mitral E Point Velocity 50.1 cm/s Mitral A Point Velocity 132.5 cm/s Mitral E to A Ratio 0.4 MV Deceleration Time 74.7 ms MV E' Velocity 3.3 cm/s Mitral E to MV E' Ratio 15.4 TR Peak Velocity 220.3 cm/s TR Peak Gradient 19.4 mmHg Right Ventricular Systolic Press 24.4 mmHg PV Peak Velocity 71.4 cm/s PV Peak Gradient 2.0 mmHg FINDINGS Left Ventricle Left ventricular ejection fraction is estimated at 30-35 %. Mildly increased posterior wall thickness. Moderately increased left ventricular diastolic volume. Severely decreased left ventricular ejection fraction. Right Ventricle Normal right ventricular size and function. Right ventricular systolic pressure within normal limits. Right Atrium Normal right atrial size. Left Atrium Mildly increased left atrial volume. Mitral Valve Mitral valve thickened. No evidence for mitral valve prolapse. No mitral stenosis. Trace mitral regurgitation. Aortic Valve Normally functioning bioprosthetic aortic valve without stenosis with a peak velocity of 2.3 m/s, peak gradient 21 mmHg, mean gradient 13 mmHg, and estimated aortic valve area of 1.9 cm???. Tricuspid Valve Structurally normal tricuspid valve. No tricuspid stenosis. Trace tricuspid regurgitation. Pulmonic Valve Pulmonic valve not well visualized. No pulmonic regurgitation. No pulmonic stenosis. Pericardium No pericardial effusion. Aorta Aortic annulus normal. Ascending aorta not well visualized. CONCLUSIONS LVEF estimated at 30 to 35%. Globally reduced LVEF Mild concentric LVH Mildly increased LV diastolic diameter Normal functioning Medtronic TAVR bioprosthesis, 23 mm. Mean gradient 13 mmHg. No paravalvular leak. No Pericardial effusion Previewed by: Dr Samuel Phillips (Electronically Signed) Final Date: 27 June 2023 12:55
[2023-06-27 14:33] VITALS: PULSE 82
--- NOTE | 2023-06-27 15:50 | P.DS ---
Providers Date of admission: 06/26/23 07:29 Expected date of discharge: 06/27/23 Attending physician: Max Castañeda Consults: 06/24/23 09:04 Consult to Anesthesia Routine Consulting Provider: Anesthesia,Services Consult Reason/Comments: Cardiac Surgery Pre-Op 06/26/23 12:59 Consult Physician Routine Consulting Provider: Odin Qureshi Reason/Comments: medical management Do you want consulting provider notified?: Yes Primary care physician: Odin Qureshi [facility] Hospital Course: MEDICAL HISTORY: 1. Severe symptomatic aortic valve stenosis, low-flow low gradient 2. CAD status post PCI, on May 01, 2023 3. Severe cardiomyopathy with an ejection fraction of 25 to 30% 4. Hypertension 5. Hyperlipidemia 6. Paroxysmal atrial fibrillation 7. History of non-ST elevated myocardial infarction 8. Chronic obstructive pulmonary disease 9. Recent cessation of smoking PROCEDURE: 1. Percutaneous aortic valve implantation using a 23 mm Boudreaux S3 ultra under AVE and fluoroscopy guidance 2. Transesophageal echocardiography performed by anesthesia 3. Ultrasound-guided access and repair of bilateral femoral artery access site by Perclose and Angio-Seal closure device 4. Placement of temporary pacemaker wire 5. Aortic root angiography 6. IVUS of bilateral iliac and aorta HISTORY OF PRESENT ILLNESS: This is an 82-year-old female patient who follows on an outpatient basis with Dr. Odin Qureshi for her primary care and Dr. Billings for cardiology care. She has a known history of severe aortic stenosis and has been symptomatic with syncopal episode and increased exertional dyspnea. She had been referred to structural heart clinic for evaluation for transcatheter aortic valve replacement after heart catheterization and transesophageal echoc ardiogram were completed. Echocardiography demonstrated her left ventricular systolic function to be severely decreased with an ejection fraction of 25 to 30%, aortic valve area 0.6 cm with a peak/mean gradient 42/35 mmHg. Heart catheterization showed coronary artery disease including a 40% stenosis to her mid left anterior descending coronary artery and a 95% stenosis to her mid circumflex coronary artery and is status post PCI to her circumflex coronary artery on May 01, 2023. After workup was completed STS risk score was calculated along with incremental risk and the patient was felt to be a high risk for surgical aortic valve replacement, however taking into consideration the patient's values and wishes transcatheter aortic valve replacement was recommended. The usual course of TAVR was discussed in detail the patient, risks and benefits were reviewed, shared decision making between cardiology, surgery, and the patient/family took place, and the patient consented to proceed with the procedure. HOSPITAL COURSE: The patient was brought to the hospital on June 26, 2023, was taken to the extended stay area, prepared in the usual fashion, and subsequently taken to the cardiac catheterization laboratory where Dr. Castañeda and Dr. Valencia completed TAVR procedure under general anesthesia with fluoroscopy and AVE. The valve was deployed under rapid ventricular pacing and proceeded without event. At the end of the procedure there was no significant gradient, hemodynamics were felt to be acceptable, and there was trace paravalvular leak. Upon completion of the procedure the patient was extubated and was transferred to the cardiovascular intensive care unit where she was recovered and monitored hemodynamically. Her oxygen was titrated down, she was tolerating oral diet, her pain was controlled, follow-up TTE demonstrated her left ventricular systolic function to be severely decreased with estimated ejection fraction at 30 to 35%, a mean gradient 13 mmHg, and she was ready to be discharged to home on postoperative day #1 with [facility] home health care. She received written and verbal instruction regarding her medications, activity restrictions, signs and symptoms requiring physician notification, and follow-up appointments. Plan - Discharge Summary Discharge Rx Participant: No New Discharge Prescriptions: New Clopidogrel [Plavix] 75 mg PO DAILY #30 tab Acetaminophen Tab [Tylenol] 1,000 mg PO Q6HR PRN tab PRN Reason: Fever And/ Or Mild Pain (1-3) Metoprolol Tartrate [Lopressor] 12.5 mg PO BID #60 tab Continue Ipratropium-Albuterol Nebulize [Duoneb 0.5 mg-3 mg/3 ml Soln] 3 ml INHALATION RT-QID PRN each PRN Reason: Shortness Of Breath Or Wheezing Furosemide [Lasix] 20 mg PO Q48H Aspirin 81 mg PO DAILY #90 tab Atorvastatin [Lipitor] 40 mg PO HS #90 tab Nitroglycerin Sl Tabs [Nitrostat] 0.4 mg SUBLINGUAL Q5M PRN #100 tab PRN Reason: Chest Pain Discontinued Ticagrelor [Brilinta] 90 mg PO BID #180 tab Discharge Medication List Aspirin 81 mg PO DAILY #90 tab 05/02/23 [Rx] Atorvastatin [Lipitor] 40 mg PO HS #90 tab 05/02/23 [Rx] Ipratropium-Albuterol Nebulize [Duoneb 0.5 mg-3 mg/3 ml Soln] 3 ml INHALATION RT-QID PRN each 05/02/23 [Rx] Nitroglycerin Sl Tabs [Nitrostat] 0.4 mg SUBLINGUAL Q5M PRN #100 tab 05/02/23 [Rx] Furosemide [Lasix] 20 mg PO Q48H 06/13/23 [History] Acetaminophen Tab [Tylenol] 1,000 mg PO Q6HR PRN tab 06/27/23 [Rx] Clopidogrel [Plavix] 75 mg PO DAILY #30 tab 06/27/23 [Rx] Metoprolol Tartrate [Lopressor] 12.5 mg PO BID #60 tab 06/27/23 [Rx] Follow up Appointment(s)/Referral(s): Octavio Billings DO [STAFF PHYSICIAN] - 1 Week (Your appointment next week is for groin check. You also have a 30 day post TAVR echo and appointment with Dr. Billings 08/09/23 @ 10:30am, and a 1 year post TAVR echo and appointment with Dr. Billings 05/21/24 @10:30 am) Odin Qureshi MD [Primary Care Provider] - As Needed Clinic,Structural Heart [NON-STAFF] - 08/09/23 10:00 am (Your appointment 08/09/23 is for 30 day follow up at the TAVR clinic before your appt with Dr. Billings. You also have a 1 year TAVR clinic follow up 05/21/24 @ 10 am before your appointment with Dr. Billings) Ambulatory/Diagnostic Orders: Basic Metabolic Panel [LAB.AMB] Location: None Selected Basic Metabolic Panel [LAB.AMB] Location: None Selected Complete Blood Count w/diff [LAB.AMB] Location: None Selected Complete Blood Count w/diff [LAB.AMB] Location: None Selected Activity/Diet/Wound Care/Special Instructions: DISCHARGE INSTRUCTIONS: 1. No driving for 1 week, or until physician gives their ok. 2. No lifting, pushing, or pulling more than 5-10 pounds for 1 week. 3. Hold both groins when you cough or sneeze for the next 2 weeks. Bruising is common, but report increased swelling, pain or fever >101F 4. Shower daily. No pool, hot tub, or bathtub for 1 week 5. No powders, lotions, ointments on incisions. 6. No straining, including for bowel movements. Use stool softner if necessary 7. Stairs are not an issue. Go slowly, using handrail and take 1 step at a time. Ambulate several times daily 8. Continue pain control per as needed orders. 9. Take only the medications listed on your discharge form 10. Eat low salt (limited to 2 grams or 2000 milligrams) daily, avoid adding salt, avoid canned/processed foods 11. Take your weight daily in the morning and record, bring with you to your follow up appointments 12. Keep all follow up appointments. You will need a valve clinic appointment at 30 days and 1 year post procedure for follow up 13. You have been referred to and are expected to begin Cardiac Rehab in approximately 4 weeks. 14. You will need antibiotics prior to any dental work, including cleanings, and any surgeries to prevent Endocarditis (bacterial infection in your heart) For any questions or concerns please call your valve coordinators: Myra or Tobin @ Discharge Disposition: HOME WITH HOME HEALTH SERVICES
[2023-06-27] MEDS ORDERED: SENNOSIDES-DOCUSATE SODIUM 1 EACH TAB PO SCH (21:00)
--- NOTE | 2023-06-27 23:06 | P.PN ---
Subjective Progress Note Date: 06/27/23 HISTORY OF PRESENT ILLNESS: 82-year-old woman my office patient well-known for long time with past medical history of hypertension, hyperlipidemia, chronic history of asthma she had previous history of atherosclerotic heart disease post angioplasty and stent placement of the circumflex coronary artery, also had previous history of stroke no apparent major residual. Her echocardiogram showed severe aortic stenosis with severe cardiomyopathy with ejection fraction of 25-50 percentile, patient had recurrent signs and symptoms of severe presyncope and dizziness with worsening symptoms. With a low ejection fraction and severe aortic stenosis underwent transesophageal echocardiogram which verified severe aortic stenosis with dimension of 0.16 and she has been feeling fairly well except continue to have slight shortness of breath with exertion also continue to have slight lower extremity edema. She will schedule for elective TAVR and despite having to have shortness of b reath with exertion has been feeling better lately with no angina chest pain or problem. Patient has been previously symptomatic with congestive heart failure and cardiomyopathy class III symptoms. She was scheduled elective TAVR which was done today successfully with cardiology with femoral approach and ended up coming to the ICU after procedure. Patient is resting comfortably still have O2 still feeling slightly shortness of breath but no chest pain or angina no neuro loss at this point. 06/27/2023: She is doing very well so far she had good night with no complication, hemodynamically stable, no sign of hypoxia and her dyspnea and shortness of breath has improved significantly since yesterday. Cardiovascular and cardiology are trying to have patient ambulate, up and about, switch all her medication to oral and prepare hopefully for sending her home today. REVIEW OF SYSTEMS: CONSTITUTIONAL: Well-developed mild respiratory distress. EYES: No icterus sclerae, no conjunctivitis. EARS, NOSE, MOUTH, THROAT, and FACE: No sore throat, lymphadenopathy, carotid b ruits or deformity. RESPIRATORY: Slight shortness of breath cough and wheezes. CARDIOVASCULAR: Positive indeterminate palpitation no angina. GASTROINTESTINAL: No Abd pain, Nausea or vomiting, no Diarrhea or constipation, No GI Bleed, no distention or masses. GENITOURINARY: Negative for Hematuria or UTI, no kidney stones. INTEGUMENT/BREAST: Negative for any muscular injury with mild osteoarthritis.. HEMATOLOGIC/LYMPHATIC: Mild anemia and bruises. MUSCULOSKELTAL: Still have slight scoliosis with mild lower back pain. NEURLOGICAL: No LOC, Sz or syncope, blurred vision dizziness or abnormality.. BEHAVIORAL/PSYCH: Negative. ENDOCRINE: Negative. PHYSICAL EXAMINATION: General Appearance: Alert, cooperative, no distress, does not look in any respiratory distress. Neck HEENT: Supple, no lymphadenopathy, no thyroid enlargement, no carotid bruits. Lungs: Clear to auscultation with fine rhonchi and slight expiratory wheezes no crackles. Chest Wall: Decreased expansion with deep inspiration no tenderness and no deformity was found on exam, no costochondral pain or discomfort. Heart: Regular rhythm and rate S1-S2, positive S3, not been able to hear any aortic stenosis murmur still have slight systolic murmur in the left second costal space. Back: Symmetric, no curvature, ROM normal, no CVA tenderness. Abdomen: Soft, non-tender, bowel sounds active all four quadrants, no masses, no organomegaly. Extremities: Extremities normal, atraumatic, no cyanosis or edema. Slight discoloration lower part of the leg. Pulses: 2+ and symmetric. Skin: Skin color, texture, tugor normal, no rashes or lesions. Neurologic: Alert oriented x3 cranial nerves II through XII intact, no motor deficit, no abnormal balance or gait. ASSESSMENT AND PLAN: _Severe symptomatic aortic stenosis: Post TAVR, patient be admitted to ICU continue to watch patient hemodynamic status carefully. Doing very well finalize medication probably home today. _Severe cardiomyopathy: Ejection fraction of 25-30 percentile. Will continue medical management eventually might benefit from being on Entresto beta-mitesh along with spironolactone in the meanwhile she was on furosemide and metoprolol only continue to watch for any worsening symptoms with exertion. _Severe dyspnea and shortness of breath: Was a combination of cardiomyopathy along with severe aortic stenosis and combined with COPD as well. _Atherosclerotic heart disease: Post angioplasty and stent of the circumflex, still seeing cardiology. _Hyperlipidemia: Remain on atorvastatin 40 mg a day. _Severe reactive airway/COPD, not on any steroid at this point, updraft treatment with albuterol/ipratropium will be done and should add probably Pulmicort. _Chronic tobacco use: Has been off nicotine at this point does not require any patch. _GI prophylaxis: Use either Pepcid or Protonix. Discussion and planning: Patient has done very well no complications so far has been hemodynamically stable will be discharged home today. Objective - Vital Signs Vital signs: Vital Signs Temp 98.2 F 06/27/23 12:00 Pulse 82 06/27/23 14:00 Resp 15 06/27/23 12:00 BP 126/73 06/27/23 12:00 Pulse Ox 97 06/27/23 12:00 FiO2 Intake & Output 06/27/23 06/27/23 06/28/23 06:59 18:59 06:59 Intake Total 566 663 Output Total 1101 350 Balance -535 313 Weight 63.1 kg 63.1 kg Intake: IV 86 103 ceFAZolin 2 gm In Sodium 50 100 Chloride 0.9% 50 ml @ 100 mls/hr IVPB Q8HR JASE Rx# :[id number] pressure bag 36 3 Intake, IV Titration 200 Amount Magnesium Sulfate-D5w Pmx 200 1 gm In Dextrose/Water 1 100ml.bag @ 100 mls/hr IVPB Q1H JASE Rx#: [id number] Oral 480 360 Output: Urine 1100 350 Stool 1 Other: Voiding Method Bedside Commode Bedside Commode # Voids 1 1 ABP, PAP, CO, CI - Last Documented Arterial Blood Pressure 140/54 - Labs CBC & Chem 7: 06/27/23 05:30 06/27/23 05:30 Labs: Abnormal Lab Results - Last 24 Hours (Table) 06/27/23 06/27/23 Range/Units 05:30 05:30 RBC 3.12 L (3.80-5.40) m/uL Hgb 10.5 L (11.4-16.0) gm/dL Hct 30.5 L (34.0-46.0) % Lymphocytes # 0.7 L (1.0-4.8) k/uL Sodium 136 L (137-145) mmol/L Chloride 108 H (98-107) mmol/L Carbon Dioxide 21 L (22-30) mmol/L Glucose 115 H (74-99) mg/dL Total Protein 5.4 L (6.3-8.2) g/dL Albumin 3.3 L (3.5-5.0) g/dL
[2023-06-28] MEDS ORDERED: CLOPIDOGREL 75 MG TAB PO SCH (09:00)
== END 2023-06-27 16:53 | disposition home health service (06) | DRG 267 ==
LOC: 2ORMAIN 07:29 → 2SICU 12:45
PROVIDERS: ADMIT Internal Medicine Interventional Cardiology; ATTEND Internal Medicine Interventional Cardiology
PROC: B3101ZZ Fluoroscopy of Thoracic Aorta using Low Osmolar Contrast (ICD-10-PCS; 2023-06-26)
PROC: 6A751Z6 Ultrasound Therapy of Peripheral Vessels, Multiple (ICD-10-PCS; 2023-06-26)
PROC: 02RF38Z Replacement of Aortic Valve with Zooplastic Tissue, Percutaneous Approach (ICD-10-PCS; principal; 2023-06-26 10:45)
PROC: B24BZZ4 Ultrasonography of Heart with Aorta, Transesophageal (ICD-10-PCS; 2023-06-26 10:45)
DX: I35.0 Nonrheumatic aortic (valve) stenosis (principal); Z00.6 Encounter for examination for normal comparison and control in clinical research program; I42.9 Cardiomyopathy, unspecified; I48.0 Paroxysmal atrial fibrillation; I10 Essential (primary) hypertension; I25.10 Atherosclerotic heart disease of native coronary artery without angina pectoris; E78.5 Hyperlipidemia, unspecified; J44.89 Other specified chronic obstructive pulmonary disease; M19.90 Unspecified osteoarthritis, unspecified site; I25.2 Old myocardial infarction; Z87.891 Personal history of nicotine dependence; Z95.5 Presence of coronary angioplasty implant and graft; Z79.82 Long term (current) use of aspirin; Z79.02 Long term (current) use of antithrombotics/antiplatelets; Z79.899 Other long term (current) drug therapy; Z86.73 Personal history of transient ischemic attack (TIA), and cerebral infarction without residual deficits
CPT/HCPCS: 33361; 37252; 71045; 80048; 80053; 82330; 83735; 85025; 86850; 86900; 86901; 93306; 93312; 93320; 93325; 94640

== ENCOUNTER → 2023-12-17 | Outpatient (CLI) | payer MEDICARE ==
--- NOTE | 2023-12-17 11:38 | MR ---
EXAMINATION TYPE: MR brain wo con DATE OF EXAM: 12/17/2023 COMPARISON: NONE HISTORY: 83-year-old female I67.9, Manuel hearing loss, weakness, forgetfulness, cerebrovascular disease . TECHNIQUE: Multiplanar, multisequence images of the brain and brainstem were acquired without IV con trast. No Diffusion weighted imaging is performed. FINDINGS: No evidence for acute infarction, hemorrhage, mass, mass effect, midline shift, herniation, effacemen t of basal cisterns, or extra-axial fluid collection. There is mild to moderate ventricular prominence with evidence ratio calculated 0.33. T2/FLAIR weighted sequences show moderate patchy periventricular and deep white matter bright signal change in both cerebral hemispheres. Minimal increased signal change within the bilateral paramedian jean. Major intracranial flow voids are intact. Dominant left vertebral artery. Midline structures demonstrate normal morphology. The craniocervical junction is normal. Mild mucosal thickening ethmoid air cells. Globes are intact. Slight leftward nasal septal deviation. IMPRESSION: 1. [id number] ventriculomegaly may be on an ex vacuo basis from central cerebral atrophy. Corre late to exclude a component of NPH. 2. Mild to moderate patchy burden of chronic small vessel ischemic disease. 3. No acute intracranial abnormality otherwise seen.
== END | disposition home or self-care (01) ==
LOC: RADMRIMAIN 10:17
PROVIDERS: ATTEND Psychiatry & Neurology Neurology
DX: I67.9 Cerebrovascular disease, unspecified
CPT/HCPCS: 70551